=== PATIENT | male | born 1945 | race Caucasian/White ===

== ENCOUNTER 2016-10-29 08:15 | Inpatient (IN) | payer MEDICARE, OTHER ==
[2016-10-29] VITALS (19 sets, daily range): BP systolic 93–152; BP diastolic 58–94
[~2016-10-29] VITALS: Ht 180.3 cm; Wt 85.8 kg
[~2016-10-29 08:15] MED LIST: ALBU17AE23 IH; ALBU2.5V4 IN; ALBU8.5H2 IH; ALBU8.5H2 INH; ALPR0.5T7 PO; ALPR1TAB2 PO; ALPR1TAB7 PO; AMD200T; AMIO200T10 PO; AMIO200T2 PO; AMIO200T50 PO; AMOX-358 PO; APIX2.5T PO; APIX5TAB2 PO; BREO ELLIPTA IH; BUDE10.2 IH; CARTIA; CEFU500T5 PO; CIPR500T78 PO; CITA20TA4 PO; CITA20TA7 PO; CTLP20T PO; CYCL10TA45; DIGO250T15 PO; DILT120C PO; DILT300C26 PO; DILT30TA PO; FLUT1AER INH; FRSM40T PO; FURO40TA4 PO; HYDR-3583 PO; HYDR-36 PO; IBUP-15 PO; LACT10SO PO; LEVO500T2 PO; LEVO5TAB12 PO; LISI40TA PO; LSNP20T PO; Levofloxacin PO; NAPR250T34; PANT40TA PO; PANT40TA3 PO; PNT40TEC PO; POTA10TA10 PO; PRAV40TA PO; PRAV40TA2 PO; PRD10T PO; PRD20T PO; PRED10TA PO; PRV20T PO; RANI-351 PO; RT-ALBUINH INH; SUCR1TAB PO; THIA100T12 PO; TIOT18CA2 IH; TRAM50TA2 PO; WARF2.5T PO; WARF5TAB6 PO; ZLP5T PO; ZOLP10TA5 PO; ZOLP5TAB6 PO
[2016-10-29] MEDS ORDERED: RT-IPRATROPIUM (ATROVENT) 0.5MG/2.5ML AMP IH ONE ×2 (08:20→08:30)
[2016-10-29] MEDS ORDERED: RT-ALBUTEROL SULF 2.5 MG/3 ML PRE-MIX VIAL ONE (08:20)
--- OUTSIDE RECORDS SUMMARY | 2016-10-29 08:21 | XMS REPORT | Continuity of Care Document ---
Author Author [facility] Organization [facility] Address Unknown Phone Unavailable Care Team Providers Care Sap Pi Architect Name Role Phone QUINN CARPENTER DO PCP Insurance Providers Payer Name Policy Number Subscriber Name Relationship [employer] [id number] Matthew Christopher 20 Self / Same As Patient [employer] [id number] Matthew Christopher 18 Self / Same As Patient Advance Directives Directive Response Recorded Date/Time Advance Directives No 03/31/15 11:38am Health Care Power of Brewing Director No 03/31/15 11:38am Organ Donor No 03/31/15 8:03am Resuscitation Status Full Code 03/31/15 11:38am Problems Medical Problems Problem Onset Date Status Alcohol abuse Unknown Active COPD with acute exacerbation Unknown Active Alcohol abuse Unknown Active Hypersomnolent Unknown Active COPD with acute exacerbation Unknown Active Alcohol abuse Unknown Active Medications Medication Dose Route Sig Days/Qty Instructions Order Date Discontinued Date Status Furosemide 40 Mg PO DAILY 12/18/06 08/27/14 Discontinued Cyclobenzaprine HCl 12/18/06 02/20/11 Discontinued [Cartia] 12/18/06 02/20/11 Discontinued Naproxen 12/18/06 02/20/11 Discontinued Citalopram Hydrobromide 20 Mg PO DAILY 12/18/06 06/30/12 Discontinued Pravastatin Sodium 40 Mg PO DAILY 12/18/06 08/27/14 Discontinued Lisinopril 20 Mg PO DAILY 12/18/06 02/16/14 Discontinued Amiodarone HCl 12/18/06 02/20/11 Discontinued Albuterol 17 Gm IH NEEDED 02/20/11 06/30/12 Discontinued Amiodarone Hcl 200 Mg PO DAILY 02/21/11 08/27/14 Discontinued Cefuroxime Axetil (Ceftin) 500 Mf PO TWICE A DAY X 5 DAYS 02/21/1108/01 Discontinued Acetaminophen/Hydrocodone Bitart (Maxidone) 0.5 Tab PO Q6HRS.PRN 01/2906/30/12 Discontinued Citalopram Hydrobromide 20 Mg PO DAILY 06/30/12 03/31/15 Discontinued Zolpidem Tartrate 10 Mg PO BEDTIME PRN 06/30/12 02/16/14 Discontinued Albuterol 8.5 Gm IH EVERY 4HRS PRN 2 PUFFS 06/30/12 08/27/14 Discontinued Ibuprofen 1 - 2 Each PO Q 4 - 6 HRS PRN PRN 06/30/12 02/16/14 Discontinued Acetaminophen/Hydrocodone Bitart 1 - 2 Ea PO Q4HR PRN 30 Qty 07/10/12 02/16/14 Discontinued Lisinopril 40 Mg PO DAILY 02/16/14 08/27/14 Discontinued Zolpidem Tartrate 5 Mg PO BEDTIME PRN SLEEP 02/16/14 08/27/14 Discontinued Apixaban (Eliquis) 5 Mg PO TWICE A DAY 02/16/14 02/23/14 Discontinued [Breo Ellipta] 1 Puff IH DAILY 02/16/14 12/06/14 Discontinued Albuterol Sulfate 0.083 % IN EVERY 4HRS PRN SHORTNESS OF BREATH 02/1608/27/14 Discontinued Apixaban (Eliquis) 5 Mg PO TWICE A DAY 30 Days 02/23/14 08/27/14 Discontinued Prednisone PO DIRECTED TAKE 2 (20MG) TABS DAILY X 3 DAYS THEN, 05/0312/06/14 Discontinued Albuterol Sulfate 2 Puff INH EVERY 4HRS PRN SHORTNESS OF BREATH 08/27 Active Furosemide (Lasix) 40 Mg PO DAILY 08/27/14 Active Lisinopril (Zestril) 40 Mg PO DAILY 08/27/14 Active Pravastatin Sodium 40 Mg PO BEDTIME 08/27/14 Active Amiodarone Hcl 200 Mg PO DAILY 08/27/14 03/31/15 Discontinued Apixaban 5 Mg PO TWICE A DAY 08/27/14 12/06/14 Discontinued Levocetirizine Dihydrochloride 5 Mg PO DAILY 08/27/14 12/06/14 Discontinued Zolpidem Tartrate 5 Mg PO BEDTIME 08/27/14 12/07/14 Discontinued Ciprofloxacin HCl 500 Mg PO TWICE A DAY 10 Qty 09/02/14 12/06/14 Discontinued Prednisone 10 Mg PO DIRECTED 30 Qty 09/02/14 12/06/14 Discontinued Thiamine Hcl 100 Mg PO DAILY 30 Qty 09/02/14 12/06/14 Discontinued [Breo Ellipta] 1 Puff IH TWICE A DAY 12/06/14 Active Pantoprazole Sod 40 Mg PO DAILY 30 Days 12/06/14 12/07/14 Discontinued Warfarin Sodium 5 Mg PO DIRECTED 30 Days 12/06/14 12/07/14 Discontinued Warfarin Sodium 2.5 Mg PO DIRECTED 30 Days patient takes this medication on: Sat, Sat, and Saturday12/06/14 12/07/14 Discontinued Zolpidem Tartrate 10 Mg PO BEDTIME 12/07/14 Active Warfarin Sodium 5 Mg PO MO,WE,FR,GALEANA 12/07/14 12/14/14 Discontinued Warfarin Sodium 2.5 Mg PO TU,TH,SA 12/07/14 12/14/14 Discontinued Tramadol Hcl 50-100 Mg PO EVERY 6 HOURS PRN PAIN 12/07/14 03/31/15 Discontinued Ranitidine Hcl 150 Mg PO TWICE A DAY 12/07/14 12/14/14 Discontinued Pantoprazole Sod 40 Mg PO DAILY@0700 30 Qty 12/14/14 03/31/15 Discontinued Apixaban 5 Mg PO TWICE A DAY 60 Qty 12/14/14 02/22/15 Discontinued Prednisone 10 Mg PO DIRECTED 30 Qty 12/14/14 02/22/15 Discontinued Apixaban 5 Mg PO DAILY 02/22/15 03/31/15 Discontinued Diltiazem Hcl 120 Mg PO DAILY 30 Qty 02/25/15 03/31/15 Discontinued Prednisone 10 Mg PO DIRECTED 30 Qty 02/25/15 03/31/15 Discontinued [Levofloxacin] 750 Mg PO DAILY@1100 3 Qty 02/25/15 03/31/15 Discontinued Tramadol Hcl 50-100 Mg PO EVERY 6 HOURS PRN PAIN 03/31/15 Active Alprazolam 0.5 Mg PO THREE TIMES A DAY PRN ANXIETY 03/31/15 Active Citalopram Hydrobromide 20 Mg PO DAILY 03/31/15 Active Pantoprazole Sodium 40 Mg PO DAILY 03/31/15 Active Amiodarone Hcl 200 Mg PO DAILY 03/31/15 Active Apixaban 5 Mg PO TWICE A DAY 03/31/15 Active [Levofloxacin] 750 Mg PO DAILY@1100 3 Qty 04/06/15 Active Social History Social History Problem Response Recorded Date/Time Alcohol Use Denies Use 03/31/2015 11:01am Recreational Drug Use No 03/31/2015 11:01am Recent Foreign Travel No 03/31/2015 11:42am Recent Infectious Disease Exposure No 03/31/2015 11:01am Hospitalization with Isolation Denies 04/06/2015 2:53pm Sexually Transmitted Disease No 03/31/2015 11:01am HIV/AIDS No 03/31/2015 11:01am Smoking Status Former Smoker 03/31/2015 11:39am Do you dip or chew tobacco? No 03/31/2015 8:03am Query Response Start Date Stop Date Smoking Status Former Smoker 03/21/2010 Hospital Discharge Instructions Patient Instructions Physician Instructions New, Converted or Re-Newed RX: Transmitted to Pharmacy Plan of Care/Instructions/FU: 1. Follow up Dr. Carpenter in office 1 week. Call for appointment. 2. Home O2 - 2 lpm. 3. Follow up with [facility] - to be rescheduled. Activity as Tolerated: Yes Discharge Diet: Cardiac Diet Care Plan Patient Instructions:: 1. Follow up Dr. Carpenter in office 1 week. Call for appointment. 2. Home O2 - 2 lpm.3. Follow up with [facility] - to be rescheduled. Plan of Care Discharge Date 04/06/15 1:30pm Disposition 01 HOME, SELF-CARE Instructions/Education Provided Community-acquired Pneumonia (DC) Prescriptions See Medications Section Referrals QUINN CARPENTER DO (Unspecified) 09/09/14 Address: [address] [place] [id number] Reason(s) for Referral: 2:30 pm (Unspecified) Reason(s) for Referral: patient is to have PT/INR 2 days after discharge from [facility]. If this falls on a weekend have the patient come in a day early or a day late (ie: Saturday or Saturday). Patient is to keep previously scheduled follow-up with Dr. Cherry at his office on December 22 at 1:20 p.m. QUINN CARPENTER DO (Unspecified) Address: [address], [place] [id number] Reason(s) for Referral: call for appointment for one week QUINN CARPENTER DO (Unspecified) 02/25/15 Address: [address], [place] [address] Reason(s) for Referral: February AT 11:30 A.M. CHRISTOPHER PHELPS DO (Unspecified) Address: [address] [place], [place] [address] Reason(s) for Referral: CALL DR. PHELPS'S OFFICE ON March @ & TELL THEM THIS NURSE ALREADY TALKED TO HIM AND TO MAKE AN URGENT OFFICE APPOINTMENT WITHIN 2 WEEKS. (HE WILL BE ON VACATION UNTIL March). QUINN CARPENTER DO (Unspecified) 04/14/15 Address: [address] [place] [address] Reason(s) for Referral: March AT 1600 Functional Status Query Response Date Recorded Patient Orientation Normal For Age April 01, 2015 9:23am Comprehension Ability Understands Concepts April 06, 2015 8:15am Allergies, Adverse Reactions, Alerts Allergen Type Severity Reaction Status Last Updated NKANo Known Allergies Allergy Unknown Active 12/06/14 Immunizations Name Given Type Date of Pneumonia Vaccine 06/25/11 Historical Date of Influenza Vaccine 07/21/14 Historical Hepatitis A No Historical Hepatitis B No Historical Tetanus Booster (TDap) Unknown Historical Vital Signs Acute Vital Signs Vital Response Date/Time Temperature (Fahrenheit) 97.6 degrees F (97.6 - 99.5) Temperature (Calculated Celsius) 36.66473 degrees C (36.4 - 37.5) Temperature Source Temporal Pulse Rate (adult) 62 bpm (60 - 90) Respiratory Rate 20 bpm (12 - 24) O2 Sat by Pulse Oximetry 94 % (88 - 100) Blood Pressure 122/76 mm Hg Pain Pain Intensity 0 Height (Feet) 5 feet Height (Inches) 11.00 inches Height (Calculated Centimeters) 180.281516 cm Weight (Pounds) 192 pounds Weight (Ounces) 2.0 oz Weight (Calculated Grams) 64453.435 gm Weight (Calculated Kilograms) 87.979923 kilograms Calculated BMI 26.78 Results Laboratory Results Test Name Result Units Flags Reference Collection Date/Time Result Date/ Time Comments White Blood Count 10.6 10^3/uL 4.3-11.0 04/03/2015 4:39am 04/03/2015 5: 15am Red Blood Count 3.19 10^6/uL L 4.35-5.85 04/03/2015 4:39am 04/03/2015 5: 15am Hemoglobin 9.9 G/DL L 13.3-17.7 04/03/2015 4:39am 04/03/2015 5:15am Hematocrit 31 % L 40-54 04/03/2015 4:39am 04/03/2015 5:15am Mean Corpuscular Volume 97 FL 80-99 04/03/2015 4:39am 04/03/2015 5: 15am Mean Corpuscular Hemoglobin 31 PG 25-34 04/03/2015 4:39am 04/03/2015 5: 15am Mean Corpuscular Hemoglobin Concent 32 G/DL 32-36 04/03/2015 4:39am 5:15am Red Cell Distribution Width 14.7 % H 10.0-14.5 04/03/2015 4:39am 2014 5:15am Platelet Count 281 10^3/uL 130-400 04/03/2015 4:39am 04/03/2015 5:15am Mean Platelet Volume 9.2 FL 7.4-10.4 04/03/2015 4:39am 04/03/2015 5: 15am Neutrophils (%) (Auto) 80 % H 42-75 04/03/2015 4:39am 04/03/2015 5:15am Lymphocytes (%) (Auto) 10 % L 12-44 04/03/2015 4:39am 04/03/2015 5:15am Monocytes (%) (Auto) 9 % 0-12 04/03/2015 4:39am 04/03/2015 5:15am Eosinophils (%) (Auto) 0 % 0-10 04/03/2015 4:39am 04/03/2015 5:15am Basophils (%) (Auto) 0 % 0-10 04/03/2015 4:39am 04/03/2015 5:15am Neutrophils # (Auto) 8.5 X 10^3 H 1.8-7.8 04/03/2015 4:39am 04/03/2015 5: 15am Lymphocytes # (Auto) 1.1 X 10^3 1.0-4.0 04/03/2015 4:3904/03/2015 5: 15am Monocytes # (Auto) 1.0 X 10^3 0.0-1.0 04/03/2015 4:39am 04/03/2015 5: 15am Eosinophils # (Auto) 0.0 10^3/uL 0.0-0.3 04/03/2015 4:39am 04/03/2015 5 :15am Basophils # (Auto) 0.0 10^3/uL 0.0-0.1 04/03/2015 4:39am 04/03/2015 5: 15am Absolute Reticulocyte Count 42 10e9/L 24-90 04/02/2015 9:20am 2014 9:35am Percent Reticulocyte Count 1.19 % 0.50-2.40 04/02/2015 9:20am 2014 9:35am Sodium Level 140 MMOL/L 135-145 04/03/2015 4:39am 04/03/2015 5:29am Potassium Level 3.8 MMOL/L 3.6-5.0 04/03/2015 4:39am 04/03/2015 5:29am Chloride Level 97 MMOL/L L 98-107 04/03/2015 4:39am 04/03/2015 5:29am Carbon Dioxide Level 31 MMOL/L 21-32 04/03/2015 4:39am 04/03/2015 5: 29am Blood Urea Nitrogen 8 MG/DL 7-18 04/03/2015 4:39am 04/03/2015 5:29am Creatinine 0.78 MG/DL 0.60-1.30 04/03/2015 4:39am 04/03/2015 5:29am BUN/Creatinine Ratio 10 04/03/2015 4:39am 04/03/2015 5:29am Estimat Glomerular Filtration Rate > 60 04/03/2015 4:39am 2014 5:29am GFR INTERPRETIVE DATA UNITS FOR ESTIMATED GFR (eGFR): mL/min/1.73 M2 REFERENCE RANGE FOR ESTIMATED GFR (eGFR) eGFR NORMAL eGFR >60 MODERATELY DECREASED eGFR 30-59 SEVERLY DECREASED eGFR 15-29 KIDNEY FAILURE <15 (OR DIALYSIS) Glucose Level 108 MG/DL H 70-105 04/03/2015 4:39am 04/03/2015 5:29am Calcium Level 8.9 MG/DL 8.5-10.1 04/03/2015 4:39am 04/03/2015 5:29am Magnesium Level 2.1 MG/DL 1.8-2.4 03/31/2015 8:10am 03/31/2015 8:56am Total Bilirubin 0.4 MG/DL 0.1-1.0 04/03/2015 4:39am 04/03/2015 5:29am Alkaline Phosphatase 63 U/L 40-136 04/03/2015 4:39am 04/03/2015 5:29am Aspartate Amino Transf (AST/SGOT) 14 U/L 5-34 04/03/2015 4:39am 2014 5:29am Alanine Aminotransferase (ALT/SGPT) 6 U/L 0-55 04/03/2015 4:39am 2014 5:29am B-Type Natriuretic Peptide 140.9 PG/ML H <100.0 03/31/2015 8:10am 2014 9:00am Total Protein 5.6 G/DL L 6.4-8.2 04/03/2015 4:39am 04/03/2015 5:29am Albumin 2.8 G/DL L 3.2-4.5 04/03/2015 4:39am 04/03/2015 5:29am Stool Occult Blood Immunoassay POSITIVE * NEGATIVE 04/03/2015 3:40pm 5:47pm Ferritin 882 H NG/ML 25-300 04/02/2015 9:20am 04/05/2015 9:19am Iron Level 28 L UG/DL 40-180 04/02/2015 9:20am 04/05/2015 9:19am Transferrin % Saturation 14 L % 15-50 04/02/2015 9:20am 04/05/2015 9: 19am Total Iron Binding Capacity 200 L UG/DL 280-380 04/02/2015 9:20am 9:19am Vitamin B12 Level 358 PG/ML 200-1000 04/02/2015 9:20am 04/05/2015 9: 19am Procedures No known history of procedures. Encounters Encounter Location Date/Time Discharged Inpatient [facility] 03/31/15 9:48am
[2016-10-29] MEDS ORDERED: RT-ALBUTEROL SULF 2.5 MG/3 ML PRE-MIX VIAL INH STA (08:25)
[2016-10-29 08:32] LABS: ABG BASE EXCESS 3.8 MMOL/L (-2.5-2.5); ABG HCO3 36 MMOL/L (23-27); ABG OXYGEN SATURATION 100 % (94-100); ABG PO2 229 MMHG (79-93); ABG TCO2 39.9 MMOL/L (21.0-31.0)
[2016-10-29 08:33] LABS: ABG PH 7.13 (7.37-7.43)
[2016-10-29 08:34] LABS: ABG PCO2 110 MMHG (35-45); ALLENS TEST POSITIVE; PATIENT TEMP 97.2
--- NOTE | 2016-10-29 08:37 | ED Respiratory ---
General Chief Complaint: Respiratory Problems Stated Complaint: RESPIRATORY DISTRESS Nursing Triage Note: PT TO [facility] WITH CC OF SOB, PT WAS SEEN BY EMS LAST NIGHT, GIVEN A BREATHING TX BUT REFUSED TRANSPORT. TWO BREATHING TX'S WHILE IN ROUTE TODAY, PT O2 SAT OF 86% ON EMS ARRIVAL AT THE HOME. Source: patient Exam Limitations: no limitations History of Present Illness Time seen by provider: 08:15 Initial Comments Here with report of respiratory distress and significant shortness of air. EMS was called this morning the patient had initial O2 sat 86 percent on 5 L home. He does have a long tubing but typically does much better than that. Apparently they were called to his house last night for similar and he was better after breathing treatment and then refused transport. Denies fever or chills. Denies nausea or vomiting. Overall complains of weakness and significant respiratory distress. Patient is poor historian which is partially due to the underlying significance of his medical condition currently. Timing/Duration: yesterday, getting worse Severity: moderate Prior Episodes/Possible Cause: occasional episodes Modifying Factors: Improves With Albuterol Nebulizer, Worse With Coughing, Improves With Oxygen Associated Symptoms: No chest pain/soreness, coughNo fever/chills, nasal congestion shortness of breath wheezing Allergies and Home Medications Allergies Coded Allergies: NKANo Known Allergies (Verified Allergy, Unknown, 12/12/15) Home Medications Albuterol Sulfate 8.5 Gm Hfa.aer.ad 2 PUFF INH Q4H PRN PRN SHORTNESS OF BREATH ( Reported) Alprazolam 1 Mg Tablet 1 MG PO TID PRN PRN ANXIETY (Reported) Alprazolam 1 Mg Tablet #12 1 MG PO TID PRN PRN ANXIETY Prescribed by: LISA HUDSON on 05/24/16 2348 Apixaban 5 Mg Tablet 5 MG PO BID (Reported) Budesonide/Formoterol Fumarate 10.2 Gm Hfa.aer.ad 2 PUFF IH DAILY (Reported) Citalopram Hydrobromide 20 Mg Tablet 20 MG PO DAILY (Reported) Digoxin 250 Mcg Tablet #30 0.25 MG PO DAILY Prescribed by: ZACK TORRES on 12/15/15 0839 Diltiazem HCl 300 Mg Cap.er.24h 300 MG PO DAILY (Reported) Furosemide 40 Mg Tablet 40 MG PO DAILY (Reported) Lactulose 10 Gm/15 Ml Solution 10 GM PO BID PRN PRN CONSTIPATION (Reported) Pantoprazole Sodium 40 Mg Tablet.dr 40 MG PO BID (Reported) Potassium Chloride 10 Meq Tablet.er 10 MEQ PO DAILY (Reported) Pravastatin Sodium 40 Mg Tablet 40 MG PO DAILY (Reported) Tiotropium [place] Cbc Base 1 Inh Aerp 2 PUFF IH BID (Reported) Tramadol HCl 50 Mg Tablet 50 MG PO Q6H PRN PRN PAIN (Reported) Constitutional: see HPINo chills, No fever EENTM: nose congestionNo throat pain Respiratory: cough short of breath wheezing Cardiovascular: no symptoms reported Gastrointestinal: no symptoms reported Genitourinary: no symptoms reported Musculoskeletal: no symptoms reported Psychiatric/Neurological: See HPI Weakness Hematologic/Lymphatic: No Symptoms Reported All Other Systems Reviewed Negative Unless Noted: Yes Past Eebdvil-Twxmfb-Ihyhzo Hx Patient Social History Alcohol Use: Occasionally Uses Recreational Drug Use: No Smoking Status: Former Smoker Type Used: Cigarettes Former Smoker/When Quit: Nov 11, 2012 Recent Foreign Travel: No Contact w/Someone Who Travel: No Recent Infectious Disease Expo: No Recent Hopitalizations: No Immunizations Up To Date Tetanus Booster (TDap): Unknown PED Vaccines UTD: No Date of Pneumonia Vaccine: Jun 25, 2011 Date of Influenza Vaccine: Aug 05, 2015 Seasonal Allergies Seasonal Allergies: Yes Surgeries HX Surgeries: Yes (HEART CATH, left shoulder surgery) Surgeries: Cardiac, Orthopedic, Pacemaker Respiratory Hx Respiratory Disorders: Yes Respiratory Disorders: Asthma, Pneumonia, Sleep Apnea, COPD Cardiovascular Hx Cardiac Disorders: Yes (systolic dysfunction) Cardiac Disorders: Atrial Fibrillation, Chronic Edema/Swelling, High Cholesterol, Hypertension Neurological Hx Neurological Disorders: No Reproductive System Hx Reproductive Disorders: No Sexually Transmitted Disease: No HIV/AIDS: No Genitourinary Hx Genitourinary Disorders: No Gastrointestinal Hx Gastrointestinal Disorders: Yes Gastrointestinal Disorders: Gastroesophageal Reflux, Chronic Constipation Musculoskeletal Hx Musculoskeletal Disorders: Yes Musculoskeletal Disorders: Arthritis Endocrine Hx Endocrine Disorders: No HEENT HX ENT Disorders: Yes HEENT Disorders: Cataract Loss of Vision: Denies Hearing Impairment: Denies Cancer Hx Cancer: Yes Cancer: Skin, Melanoma Psychosocial Hx Psychiatric Problems: Yes Behavioral Health Disorders: Anxiety, Depression Integumentary HX Skin/Integumentary Disorder: No Blood Transfusions Hx Blood Disorders: No Adverse Reaction to a Blood Tr: No Reviewed Nursing Assessment Reviewed/Agree w Nursing PMH: Yes Family Medical History Significant Family History: Heart Disease Family Medial History: Alzheimer's disease 19 FATHER 19 MOTHER (70's) Diabetes mellitus 19 FATHER Hypertension 19 FATHER Myocardial infarction 19 FATHER (60's) Physical Exam Vital Signs Vital Sign - Last 12Hours 10/29/16 10/29/16 08:22 08:43 Temp 97.2 Pulse 60 Resp 28 B/P 148/83 Pulse Ox 100 O2 Delivery Non Rebreather O2 Flow Rate 7 Capillary Refill : Less Than 3 Seconds General Appearance: WD/WN moderate distress HEENT: PERRL/EOMI pharynx normal Neck: full range of motion supple Respiratory: respiratory distress (moderate) decreased breath sounds accessory muscle use wheezing expiration inspiration Cardiovascular: regular rate, rhythm no murmur Gastrointestinal: non tender soft Extremities: non-tender normal inspection Neurologic/Psychiatric: alert oriented x 3 Skin: normal color warm/dry Progress/Results/Core Measures Results/Orders Lab Results Laboratory Tests Test 10/29/16 08:20 10/29/16 08:50 10/29/16 09:31 10/29/16 09:39 Range/Units Curtis Test POSITIVE POSITIVE Arterial Blood Base Excess 3.8 H 3.9 H -2.5-2.5 MMOL/L Arterial Blood HCO3 36 H 34 H 23-27 MMOL/L Arterial Blood Oxygen Saturation 100 93 L 94-100 % Arterial Blood Partial Pressure CO2 110 *H 81 *H 35-45 MMHG Arterial Blood Partial Pressure O2 229 H 66 L 79-93 MMHG Arterial Blood Total CO2 39.9 H 36.5 H 21.0-31.0 MMOL/L Arterial Blood pH 7.13 *L 7.23 *L 7.37-7.43 Blood Gas Inspired Oxygen 99% 32 F102 Blood Gas Patient Temperature 97.2 97.5 Blood Gas Puncture Site RIGHT BRACHIAL RIGHT RADIAL Blood Gas Ventilator Setting NO NO Alanine Aminotransferase (ALT/SGPT) 33 0-55 U/L Albumin 5.0 H 3.2-4.5 G/DL Alkaline Phosphatase 106 40-136 U/L Anion Gap 14 5-14 MMOL/L Aspartate Amino Transf (AST/SGOT) 42 H 5-34 U/L BUN/Creatinine Ratio 17 Band Neutrophils 2 % Basophils # (Auto) 0.0 0.0-0.1 10^3/uL Basophils % (Manual) 0 % Basophils (%) (Auto) 0 0-10 % Blood Urea Nitrogen 25 H 7-18 MG/DL C-Reactive Protein High Sensitivity 3.87 H 0.00-0.50 MG/DL Calcium Level 9.7 8.5-10.1 MG/DL Carbon Dioxide Level 27 21-32 MMOL/L Chloride Level 82 L 98-107 MMOL/L Creatinine 1.50 H 0.60-1.30 MG/DL Eosinophils # (Auto) 0.0 0.0-0.3 10^3/uL Eosinophils % (Manual) 0 % Eosinophils (%) (Auto) 0 0-10 % Estimat Glomerular Filtration Rate 46 Glucose Level 150 H 70-105 MG/DL Hematocrit 40 40-54 % Hemoglobin 13.4 13.3-17.7 G/DL Lymphocytes # (Auto) 0.3 L 1.0-4.0 X 10^3 Lymphocytes % (Manual) 1 % Lymphocytes (%) (Auto) 2 L 12-44 % Macrocytosis SLIGHT Magnesium Level 2.6 H 1.8-2.4 MG/DL Mean Corpuscular Hemoglobin 34 25-34 PG Mean Corpuscular Hemoglobin Concent 33 32-36 G/DL Mean Corpuscular Volume 100 H 80-99 FL Mean Platelet Volume 9.1 7.4-10.4 FL Monocytes # (Auto) 1.0 0.0-1.0 X 10^3 Monocytes % (Manual) 4 % Monocytes (%) (Auto) 7 0-12 % Neutrophils # (Auto) 13.1 H 1.8-7.8 X 10^3 Neutrophils % (Manual) 93 % Neutrophils (%) (Auto) 91 H 42-75 % Platelet Count 155 130-400 10^3/uL Potassium Level 6.3 H 3.6-5.0 MMOL/L Red Blood Count 4.00 L 4.35-5.85 10^6/uL Red Cell Distribution Width 13.3 10.0-14.5 % Sodium Level 123 *L 135-145 MMOL/L Total Bilirubin 0.6 0.1-1.0 MG/DL Total Protein 7.8 6.4-8.2 G/DL White Blood Count 14.4 H 4.3-11.0 10^3/uL Micro Results Microbiology 10/29/16 Influenza Types A,B Antigen (PATRICIA) - Final, Complete My Orders Orders-LISA HUDSON MD Arterial Blood Gas (10/29/16 08:22) Cbc With Automated Diff (10/29/16 08:22) Comprehensive Metabolic Panel (10/29/16 08:22) Hs C Reactive Protein (10/29/16 08:22) Lactic Acid Analyzer (10/29/16 08:22) Magnesium (10/29/16 08:22) Blood Culture (10/29/16 08:22) Influenza A And B Antigens (10/29/16 08:22) Chest 1 View, Ap/Pa Only (10/29/16 08:22) Rt Request For Service (10/29/16 08:22) Ekg Tracing (10/29/16 08:22) O2 (10/29/16 08:22) Monitor-Rhythm Ecg Trace Only (10/29/16 08:22) Albuterol Pre-Mix Nebs (Rt) (Proventil P (10/29/16 08:25) Ipratropium 0.02% Neb Solution (Atrovent (10/29/16 08:30) Svn Sm Volume Nebulizer Rt-Rfs (10/29/16 08:25) Svn Sm Volume Nebulizer Rt-Rfs (10/29/16 08:25) Ipratropium 0.02% Neb Solution (Atrovent (10/29/16 08:20) Albuterol Pre-Mix Nebs (Rt) (Proventil P (10/29/16 08:20) Manual Differential (10/29/16 08:50) Arterial Blood Gas (10/29/16 09:42) Medications Given in ED Current Medications Medications Dose Ordered Sig/Jimmy Route Start Time Stop Time Status Last Admin Dose Admin Ipratropium [place] Cbc Base 0.5 mg ONCE ONCE IH 10/29/16 08:30 10/29/16 08:31 DC 10/29/16 08:37 0.5 MG Vital Signs/I&O Vital Sign - Last 12Hours 10/29/16 10/29/16 08:22 08:43 Temp 97.2 Pulse 60 99 Resp 28 B/P 148/83 Pulse Ox 100 97 O2 Delivery Non Rebreather O2 Flow Rate 7 32 Blood Pressure Mean: 104 Progress Note : Progress Note Seen and evaluated on arrival by EMS. IV established by EMS. EMS did give 2 DuoNeb treatments and 125 mg Solu-Medrol IV. Labs, EKG, chest x-ray and ABG ordered. BiPAP initiated shortly after arrival due to persistent in significant respiratory distress/failure. ABG confirms respiratory failure with CO2 of 110. Blood cultures and lactic acid have been ordered and drawn. Monitor patient. ECG Initial ECG Impression Date: Oct 29, 2016 Initial ECG Impression Time: 08:29 Initial ECG Rate: 74 Comment Ventricular paced rhythm. Intraventricular conduction delay with right bundle branch block appearance. Left ventricular hypertrophy noted. These are also noted on previous evaluation. Those of ST elevation [place]. Otherwise similar to previous. Interpreted by me. Diagnostic Imaging Diagonstic Imaging: Xray Plain Films/CT/US/NM/MRI: chest Comments VIA [facility] [place], [place] NAME: HERACLIO CHRISTOPHER [facility] REC#: [id number] PT STATUS: REG ER : 1945 PHYSICIAN: LISA HUDSON MD ADMIT DATE: 10/29/16/ER Draft Date of Exam:10/29/16 CHEST 1 VIEW, AP/PA ONLY CLINICAL INDICATION: Patient with complains of shortness of breath. EXAM: Portable chest x-ray upright view. COMPARISONS: Chest x-ray 2 views dated 01/11/2016. FINDINGS: Lungs/pleura: There is interval slight increase of linear opacities in right lung base which may represent atelectasis, but superimposed infiltrate cannot be completely excluded. There is no pneumothorax. There is no pleural effusion. Mediastinum: Unremarkable. Pulmonary vasculature: Unremarkable. Heart: Cardiac silhouette is upper limits of normal for portable projection. Again seen cardiac pacemaker overlying left chest with 2 leads projecting over the heart. Bones/extrathoracic soft tissue: There are hypertrophic spurs involving the thoracic spine. IMPRESSION: 1: There is interval mild right lung base atelectasis versus infiltrate. Chest x-ray 2 views may help better evaluate. 2: Upper limits of normal heart size for portable projection. Dictated on workstation # [id number] Dict: 10/29/16927 Trans: 10/29/16930 [id number] Interpreted by: ARSALAN PACKER MD Electronically signed by: Departure Impression Impression: Primary Impression: Acute respiratory failure with hypoxia and hypercarbia Disposition: ADMITTED INPATIENT Condition: Critical Decision to Admit Reason: Admit from ER (General) Decision to Admit/Date: Oct 29, 2016 Time/Decision to Admit Time: 09:50 Departure-Patient Inst. Referrals: QUINN LARIOS DO (PCP/Family) Primary Care Physician LISA HUDSON MD Oct 29, 2016 08:37
[2016-10-29 09:00] LABS: BASOPHILS % (AUTO) 0 % (0-10); EOSINOPHILS % (AUTO) 0 % (0-10); LYMPHOCYTES # (AUTO) 0.3 X 10^3 (1.0-4.0); LYMPHOCYTES % (AUTO) 2 % (12-44); MEAN CORPUSCULAR HEMOGLOBIN 34 PG (25-34); MEAN CORPUSCULAR HGB CONC 33 G/DL (32-36); MEAN CORPUSCULAR VOLUME 100 FL (80-99); MEAN PLATELET VOLUME 9.1 FL (7.4-10.4); MONOCYTES % (AUTO) 7 % (0-12); NEUTROPHILS # (AUTO) 13.1 X 10^3 (1.8-7.8); NEUTROPHILS % (AUTO) 91 % (42-75); PLATELET COUNT 155 10^3/uL (130-400); RED CELL DISTRIBUTION WIDTH 13.3 % (10.0-14.5); WHITE BLOOD COUNT 14.4 10^3/uL (4.3-11.0)
[2016-10-29 09:14] LABS: BAND NEUTROPHILS 2 %; BASOPHILS % (MANUAL) 0 %; EOSINOPHILS % (MANUAL) 0 %; LYMPHOCYTES % (MANUAL) 1 %; NEUTROPHILS % (MANUAL) 93 %
[2016-10-29 09:20] LABS: BILIRUBIN,TOTAL 0.6 MG/DL (0.1-1.0); CALCIUM 9.7 MG/DL (8.5-10.1); CREATININE SERUM 1.5 MG/DL (0.60-1.30); MAGNESIUM 2.6 MG/DL (1.8-2.4); POTASSIUM 6.3 MMOL/L (3.6-5.0); TOTAL PROTEIN 7.8 G/DL (6.4-8.2); hs C REACTIVE PROTEIN 3.87 MG/DL (0.00-0.50)
--- NOTE | 2016-10-29 09:32 | Diagnostic Imaging Report ---
CLINICAL INDICATION: Patient with complains of shortness of breath. EXAM: Portable chest x-ray upright view. COMPARISONS: Chest x-ray 2 views dated 01/11/2016. FINDINGS: Lungs/pleura: There is interval slight increase of linear opacities in right lung base which may represent atelectasis, but superimposed infiltrate cannot be completely excluded. There is no pneumothorax. There is no pleural effusion. Mediastinum: Unremarkable. Pulmonary vasculature: Unremarkable. Heart: Cardiac silhouette is upper limits of normal for portable projection. Again seen cardiac pacemaker overlying left chest with 2 leads projecting over the heart. Bones/extrathoracic soft tissue: There are hypertrophic spurs involving the thoracic spine. IMPRESSION: 1: There is interval mild right lung base atelectasis versus infiltrate. Chest x-ray 2 views may help better evaluate. 2: Upper limits of normal heart size for portable projection. Dictated by: Dictated on workstation # [id number]
[2016-10-29 09:45] LABS: ABG BASE EXCESS 3.9 MMOL/L (-2.5-2.5); ABG HCO3 34 MMOL/L (23-27); ABG OXYGEN SATURATION 93 % (94-100); ABG PO2 66 MMHG (79-93); ABG TCO2 36.5 MMOL/L (21.0-31.0)
[2016-10-29 09:47] LABS: ABG PCO2 81 MMHG (35-45); ABG PH 7.23 (7.37-7.43); ALLENS TEST POSITIVE
[2016-10-29 09:48] LABS: PATIENT TEMP 97.5
--- NOTE | 2016-10-29 10:44 | Consultation-Cardiology ---
HPI-Cardiology Cardiology Consultation Date of Consultation 10/29/16 Date of Admission Indication: shortness of breath HPI 71-year-old gentleman with history of coronary artery disease, paroxysmal atrial flutter. Admitted for increasing shortness of breath, was noted to be in hypercapnic respiratory failure. Started on BiPAP, upper my evaluation patient was laying down in bed, denied any chest pain, denied any pedal edema or claudication. Denied any syncope, overall he is a poor historian especially with the BiPAP machine. Was unable to provide full history, history was obtained by reviewing his record and visiting with Dr. Reed Home Medications & Allergies Allergies: Coded Allergies: NKANo Known Allergies (Verified Allergy, Unknown, 12/12/15) Home Medication List Reviewed: Yes [id number]-[id number]-Aqwkba Hx Patient Social History Alcohol Use: Occasionally Uses Recreational Drug Use: No Smoking Status: Former Smoker Former smoker/When Quit: Nov 11, 2012 Type Used: Cigarettes Recent Foreign Travel: No Recent Infectious Disease Expo: No Recent Hopitalizations: No Immunizations Up To Date Tetanus Booster (TDap): Unknown Date of Pneumonia Vaccine: Jun 25, 2011 Date of Influenza Vaccine: Aug 05, 2015 Past Medical History past medical history as discussed below Family Medical History Significant Family History: Heart Disease Family History: 19 FATHER Alzheimer's disease Diabetes mellitus Hypertension Myocardial infarction (60's) 19 MOTHER Alzheimer's disease (70's) Constitutional: see HPI chills diaphoresis malaise weakness EENTM: no symptoms reported see HPI Respiratory: see HPI cough dyspnea on exertion phlegm short of breath Cardiovascular: see HPINo chest pain, No edema, No Hx of Intervention, No palpitations, No syncope, No vascular heart diseas, No other Gastrointestinal: no symptoms reported see HPI Genitourinary: see HPI decreased output Musculoskeletal: no symptoms reported see HPI Skin: no symptoms reported see HPI Psychiatric/Neurological: No Symptoms Reported See HPI Reviewed Test Results Reviewed Test Results Lab Laboratory Tests Test 10/29/16 08:20 10/29/16 08:50 10/29/16 09:31 10/29/16 09:39 Range/Units Curtis Test POSITIVE POSITIVE Arterial Blood Base Excess 3.8 H 3.9 H -2.5-2.5 MMOL/L Arterial Blood HCO3 36 H 34 H 23-27 MMOL/L Arterial Blood Oxygen Saturation 100 93 L 94-100 % Arterial Blood Partial Pressure CO2 110 *H 81 *H 35-45 MMHG Arterial Blood Partial Pressure O2 229 H 66 L 79-93 MMHG Arterial Blood Total CO2 39.9 H 36.5 H 21.0-31.0 MMOL/L Arterial Blood pH 7.13 *L 7.23 *L 7.37-7.43 Blood Gas Inspired Oxygen 99% 32 F102 Blood Gas Patient Temperature 97.2 97.5 Blood Gas Puncture Site RIGHT BRACHIAL RIGHT RADIAL Blood Gas Ventilator Setting NO NO Alanine Aminotransferase (ALT/SGPT) 33 0-55 U/L Albumin 5.0 H 3.2-4.5 G/DL Alkaline Phosphatase 106 40-136 U/L Anion Gap 14 5-14 MMOL/L Aspartate Amino Transf (AST/SGOT) 42 H 5-34 U/L BUN/Creatinine Ratio 17 Band Neutrophils 2 % Basophils # (Auto) 0.0 0.0-0.1 10^3/uL Basophils % (Manual) 0 % Basophils (%) (Auto) 0 0-10 % Blood Urea Nitrogen 25 H 7-18 MG/DL C-Reactive Protein High Sensitivity 3.87 H 0.00-0.50 MG/DL Calcium Level 9.7 8.5-10.1 MG/DL Carbon Dioxide Level 27 21-32 MMOL/L Chloride Level 82 L 98-107 MMOL/L Creatinine 1.50 H 0.60-1.30 MG/DL Eosinophils # (Auto) 0.0 0.0-0.3 10^3/uL Eosinophils % (Manual) 0 % Eosinophils (%) (Auto) 0 0-10 % Estimat Glomerular Filtration Rate 46 Glucose Level 150 H 70-105 MG/DL Hematocrit 40 40-54 % Hemoglobin 13.4 13.3-17.7 G/DL Lymphocytes # (Auto) 0.3 L 1.0-4.0 X 10^3 Lymphocytes % (Manual) 1 % Lymphocytes (%) (Auto) 2 L 12-44 % Macrocytosis SLIGHT Magnesium Level 2.6 H 1.8-2.4 MG/DL Mean Corpuscular Hemoglobin 34 25-34 PG Mean Corpuscular Hemoglobin Concent 33 32-36 G/DL Mean Corpuscular Volume 100 H 80-99 FL Mean Platelet Volume 9.1 7.4-10.4 FL Monocytes # (Auto) 1.0 0.0-1.0 X 10^3 Monocytes % (Manual) 4 % Monocytes (%) (Auto) 7 0-12 % Neutrophils # (Auto) 13.1 H 1.8-7.8 X 10^3 Neutrophils % (Manual) 93 % Neutrophils (%) (Auto) 91 H 42-75 % Platelet Count 155 130-400 10^3/uL Potassium Level 6.3 H 3.6-5.0 MMOL/L Red Blood Count 4.00 L 4.35-5.85 10^6/uL Red Cell Distribution Width 13.3 10.0-14.5 % Sodium Level 123 *L 135-145 MMOL/L Total Bilirubin 0.6 0.1-1.0 MG/DL Total Protein 7.8 6.4-8.2 G/DL White Blood Count 14.4 H 4.3-11.0 10^3/uL Lactic Acid Level 1.3 0.5-2.0 MMOL/L Physical Exam Vital Signs Vital Sign - Last 12Hours 10/29/16 10/29/16 10/29/16 08:20 08:22 08:43 Temp 97.2 Pulse 60 Resp 28 B/P 148/83 Pulse Ox 96 O2 Delivery Nonrebreather O2 Flow Rate 7 Capillary Refill : Less Than 3 Seconds General Appearance: WD/WN Severe Distress Eyes: Bilateral Eye EOMI, Bilateral Eye Normal Inspection, Bilateral Eye PERRL HEENT: PERRL/EOMI TMs Normal Normal ENT Inspection Pharynx Normal Neck: Full Range of Motion Normal Inspection Non Tender Supple Respiratory: Chest Non Tender Crackles Decreased Breath Sounds Rales Respiratory Distress Cardiovascular: Regular Rate, Rhythm No Edema No JVD Normal Peripheral Pulses Systolic Murmur Gallop/S3 Gastrointestinal: Normal Bowel Sounds No Organomegaly No Pulsatile Mass Non Tender Soft Back: Normal Inspection No CVA Tenderness No Vertebral Tenderness Extremity: Normal Capillary Refill Normal Inspection Normal Range of Motion Non Tender No Calf Tenderness No Pedal Edema Neurologic/Psychiatric: Alert Oriented x3 No Motor/Sensory Deficits Normal Mood/Affect Skin: Normal Color Warm/Dry Lymphatic: No Adenopathy A/P-Cardiology Admission Diagnosis Acute respiratory failure Paroxysmal atrial flutter Sick sinus syndrome COPD Assessment/Plan Acute respiratory failure, on BiPAP, hypercapnic failure, questionable pneumonia , admitted by medical service, started on antibiotic with respiratory support. Severe COPD, followed by Dr. Zuniga, multiple hospitalization, using oxygen at home. Acute exacerbation at this time. Sick sinus syndrome, advanced AV block, paroxysmal atrial flutter, had dual- chamber pacemaker implanted in February 2011, has been followed by Dr. Cherry, no syncopal episodes were reported. History of nonischemic cardiomyopathy, no signs of heart failure, last echocardiogram was reported in July 2015 to have ejection fraction of 55 percent with mild aortic stenosis with valve area of 1.6 cm, had mild coronary artery disease per cardiac catheterization Hypertension, restart home medication monitor blood pressure. Hyperlipidemia, continue to monitor. History of chronic oral anticoagulation fo reducing the risk of stroke due to paroxysmal atrial flutter, maintained on amiodarone History of Lozano esophagus, peptic ulcer disease history of tobaccoism. Patient has stopped smoking. Continue to monitor MORGAN EDWARDS MD Oct 29, 2016 10:44
[2016-10-29] MEDS ORDERED: CHOL10007 PO (11:08)
[2016-10-29] MEDS ORDERED: DIGO250T PO (11:08)
[2016-10-29] MEDS ORDERED: LISI40TA PO (11:08)
[2016-10-29] MEDS ORDERED: SUCR1TAB PO (11:08)
[2016-10-29] MEDS ORDERED: BECL8.7A7 IH (11:08)
[2016-10-29] MEDS ORDERED: ROFL500T4 PO (11:08)
[2016-10-29] MEDS ORDERED: THIA100T7 PO (11:08)
[2016-10-29] MEDS ORDERED: OMEP40CA36 PO (11:08)
[2016-10-29] MEDS ORDERED: MONT10TA24 PO (11:08)
[2016-10-29] MEDS ORDERED: ZOLP10TA5 PO (11:12)
[2016-10-29] MEDS ORDERED: ARFO15VI3 IH (11:12)
[2016-10-29] MEDS ORDERED: CATHETER FLUSH 10 ML SYR IV PRN (11:45)
[2016-10-29] MEDS: NS IV 1000 ML 1,000 ML IV SCH ×2 (12:10→21:45)
[2016-10-29] MEDS: methylPREDNISolone 125 MG (Solu-MEDROL) VIAL IV SCH ×2 (12:11→19:46)
[2016-10-29] MEDS ORDERED: RT-ALBUTEROL/IPRATROPIUM 3 ML (DUONEB) VIAL INH PRN (12:45)
--- NOTE | 2016-10-29 13:01 | History & Physical-Hospitalist ---
RADHA NICKERSON MED STUDENT 10/29/16 1301: HPI History of Present Illness: HPI/Chief Complaint CC: shortness of breath HPI: Mr. Britt is a 71yoM with an extensive PMH including CAD, COPD, and PAF on anticoagulation with a pacemaker admitted for hypercarbic respiratory failure with hypoxia. He was having increased work of breathing all day yesterday. He wears oxygen at home all of the time and typically has it set to 2.5L, but yesterday his oxygen saturation was in the mid 80's, and they had to turn it all the way up to 5L. This improved his oxygen to about 90% at home. Overnight, his noted that he continue to have extreme difficulty in breathing, and by this morning he was breathing very shallow because he was so tired. He came to the ED, and was admitted to the ICU with BiPAP due to CO2 retention with a WBC of 14.[address] Carpenter. Source: family Exam Limitations: other (patient on bipap resting) Date Seen 10/29/16 Attending Physician Bruce Zuniga DO PCP Jarad Carpenter DO Referring Physician Date of Admission Oct 29, 2016 at 10:00 Home Medications & Allergies Home Medications Reviewed patient Home Medication Reconciliation Form Allergies Coded Allergies: NKANo Known Allergies (Verified Allergy, Unknown, 12/12/15) Past Qjdukiz-Swqfgx-Dksrmr Hx Patient Social History Marrital Status: Alcohol Use: Occasionally Uses Recreational Drug Use: No Smoking Status: Former Smoker Former smoker/When Quit: Nov 11, 2012 Type Used: Cigarettes Physical Abuse Screen: No Sexual Abuse: No Recent Foreign Travel: No Contact w/other who traveled: No Recent Hopitalizations: No Recent Infectious Disease Expo: No Immunizations Up To Date Tetanus Booster (TDap): Unknown Date of Pneumonia Vaccine: Jun 25, 2011 Date of Influenza Vaccine: Aug 05, 2015 Seasonal Allergies Seasonal Allergies: Yes Surgeries HX Surgeries: Yes (HEART CATH, left shoulder surgery) Surgeries: Cardiac, Orthopedic, Pacemaker Respiratory Hx Respiratory Disorders: Yes Respiratory Disorders: Chronic Bronchitis, COPD, Emphysema, Pneumonia Cardiovascular Hx Cardiovascular Disorders: Yes (systolic dysfunction) Cardiac Disorders: Atrial Fibrillation, Chronic Edema/Swelling, High Cholesterol, Hypertension Neurological Hx Neurological Disorders: No Reproductive System Hx Reproductive Disorders: No Sexually Transmitted Disease: No HIV/AIDS: No Genitourinary Hx Genitourinary Disorders: No Gastrointestinal Hx Gastrointestinal Disorders: Yes Gastrointestinal Disorders: Gastroesophageal Reflux, Chronic Constipation Musculoskeletal Hx Musculoskeletal Disorders: Yes Musculoskeletal Disorders: Arthritis Endocrine Hx Endocrine Disorders: No HEENT HX ENT Disorders: Yes HEENT Disorders: Cataract Loss of Vision: Denies Hearing Impairment: Denies Cancer Hx Cancer: Yes Cancer: Skin, Melanoma Psychosocial Hx Psychiatric Problems: Yes Behavioral Health Disorders: Anxiety, Depression Integumentary HX Skin/Integumentary Disorder: No Blood Transfusions Hx Blood Disorders: No Adverse Reaction to a Blood Tr: No Reviewed Nursing Assessment Reviewed/Agree w Nursing PMH: Yes Family Medical History Significant Family History: Heart Disease Family Hx: Alzheimer's disease 19 FATHER 19 MOTHER (70's) Diabetes mellitus 19 FATHER Hypertension 19 FATHER Myocardial infarction 19 FATHER (60's) Review of Systems ROS-Unable to Obtain: patient extremely fatigued, eyes closed, using BiPAP Cardiovascular: No chest pain Physical Exam Physical Exam Vital Signs Vital Sign - Last 12Hours 10/29/16 10/29/16 10/29/16 08:20 08:22 08:43 Temp 97.2 Pulse 60 Resp 28 B/P 148/83 Pulse Ox 96 O2 Delivery Nonrebreather O2 Flow Rate 7 Capillary Refill : Less Than 3 Seconds General Appearance: Moderate Distress Obese HEENT: PERRL/EOMI Neck: Normal Inspection Non Tender Supple Respiratory: Chest Non Tender Accessory Muscle Use Respiratory Distress Wheezing Cardiovascular: No Gallop No JVD No Murmur Normal Peripheral Pulses Other ( ventricularly paced at 60) Gastrointestinal: Normal Bowel Sounds No Organomegaly No Pulsatile Mass Non Tender Soft Rectal: Deferred Extremity: Normal Capillary Refill Normal Range of Motion Non Tender No Calf Tenderness Pedal Edema (1+ to mid shins) Other (chronic skin changes in lower extremity consistent with venous insufficiency) Neurologic/Psychiatric: Other (patient is resting, eyes close, moving all extremities) Skin: Cool Lymphatic: No Adenopathy Results Results/Procedures Lab Laboratory Tests 10/29/16 08:50 Radiology chest xray: 1: There is interval mild right lung base atelectasis versus infiltrate. Chest x-ray 2 views may help better evaluate. 2: Upper limits of normal heart size for portable projection. Assessment/Plan Admission Diagnosis hypercarbic respiratory failure with hypoxia, COPD exacerbation, hyperkalemia, hyponatremia Assessment and Plan 71yo with extensive PMH including CAD, COPD, PAF in hypercarbic respiratory failure with hypoxia. 1. hypercarbic respiratory failure with hypoxia -bipap on at 16/5 pressure, 50% O2, O2 sat at 99% -start broad spectrum antibiotics to cover for any other reason of respiratory failure, chest xray with atelectasis vs consolidation, WBC 14.4 -nebs, IV solu med -monitor serial ABG's for CO2 -pulm and cards consult 2. Leukocytosis -will continue to trend and monitor labs 3. hyperkalemia -albuterol should assist with this somewhat -consider lasix in setting of edema on legs as well 4. hyponatremia -126 in March of 2016 -123 today, likely chronic in nature 5. CAD 6. PAF -cards consult -continue eliquis 7. COPD -respiratory treatment as above ZACK TORRES DO 10/30/16 1100: HPI History of Present Illness: HPI/Chief Complaint noted details above deemed CORRECT and patient not communicating due to BiPAP in place in respiratory failure at the bedside agrees with plan Source: family Exam Limitations: clinical condition Home Medications & Allergies Allergies Coded Allergies: NKANo Known Allergies (Verified Allergy, Unknown, 12/12/15) Past Jfcdadk-Ualeal-Hvcpht Hx Patient Social History Marrital Status: Employed/Student: retired Respiratory Hx Respiratory Disorders: Yes Respiratory Disorders: COPD, Emphysema, Sleep Apnea Cardiovascular Hx Cardiovascular Disorders: Yes Cardiac Disorders: High Cholesterol, Hypertension Neurological Hx Neurological Disorders: No Genitourinary Hx Genitourinary Disorders: Yes Genitourinary Disorders: Renal Failure Gastrointestinal Hx Gastrointestinal Disorders: Yes Gastrointestinal Disorders: Esophagitis Musculoskeletal Hx Musculoskeletal Disorders: Yes Musculoskeletal Disorders: Arthritis, Chronic Back Pain Family Medical History Family Hx: Alzheimer's disease 19 FATHER 19 MOTHER (70's) Diabetes mellitus 19 FATHER Hypertension 19 FATHER Myocardial infarction 19 FATHER (60's) Review of Systems Constitutional: no symptoms reported Physical Exam Physical Exam Vital Signs Vital Sign - Last 12Hours 10/29/16 10/29/16 10/29/16 10/29/16 08:20 08:22 08:43 11:30 Temp 97.2 Pulse 60 Resp 28 B/P 148/83 Pulse Ox 96 O2 Delivery Nonrebreather O2 Flow Rate 7 FiO2 50 General Appearance: No Apparent Distress WD/WN Chronically ill Moderate Distress Obese Eyes: Bilateral Eye Normal Inspection, Bilateral Eye PERRL HEENT: PERRL/EOMI Normal ENT Inspection Pharynx Normal Neck: Full Range of Motion Normal Inspection Non Tender Supple Carotid Bruit Respiratory: Chest Non Tender No Accessory Muscle Use No Respiratory Distress Accessory Muscle Use Crackles Decreased Breath Sounds Respiratory Distress Wheezing Other (on biPAP) Cardiovascular: Regular Rate, Rhythm No Edema No Gallop No JVD No Murmur Normal Peripheral Pulses Gastrointestinal: Normal Bowel Sounds No Organomegaly No Pulsatile Mass Non Tender Soft Back: Normal Inspection No CVA Tenderness No Vertebral Tenderness Extremity: Normal Capillary Refill Normal Inspection Normal Range of Motion Non Tender No Calf Tenderness No Pedal Edema Neurologic/Psychiatric: No Motor/Sensory Deficits Normal Mood/Affect Disoriented x3 Other (patient is resting, eyes close, moving all extremities) Skin: Normal Color Warm/Dry Lymphatic: No Adenopathy Results Results/Procedures Lab Laboratory Tests 10/29/16 08:50 10/29/16 20:13 10/30/16 04:05 Assessment/Plan Admission Diagnosis Acute respiratory failure on chronic respiratory failure due to noncompliance with sleep apnea treatment in addition to severe COPD oxygen dependent CAD A fibrillation Pacemaker placement Hypertension Leukocytosis of unknown source likely stress-related since chest x-ray shows no infiltrate Assessment and Plan Monitor closely due to critical illness if this is an extended hospital stay meets criteria for [place] due to the severity of his lung disease RADHA NICKERSON MED STUDENT Oct 29, 2016 13:01 ZACK TORRES DO Oct 30, 2016 11:00
--- NOTE | 2016-10-29 13:06 | Pulmonary Consultation ---
History of Present Illness History of Present Illness Date of Consultation 10/29/16 13:00 Date of Admission Reason for Visit: shortness of breath History of Present Illness 71yo who presented t ED secondary to worsening SOB and weakness. Pt was found to have Sp02 of 86 on 5 liters NC. Pt refused EMS transfer yesterday after feeling improved with SVNs. Allergies and Home Medications Allergies Coded Allergies: NKANo Known Allergies (Verified Allergy, Unknown, 12/12/15) Home Medications Albuterol Sulfate 8.5 Gm Hfa.aer.ad 2 PUFF INH QID PRN PRN SHORTNESS OF BREATH ( Reported) Alprazolam 1 Mg Tablet 1 MG PO Q8H PRN PRN ANXIETY (Reported) Apixaban 5 Mg Tablet 5 MG PO BID (Reported) Arformoterol Tartrate 15 Mcg/2 Ml Vial.neb 15 MCG IH QID (Reported) Beclomethasone Dipropionate 8.7 Gm Aer.w.adap 2 PUFF IH BID (Reported) Cholecalciferol (Vitamin D3) 1,000 Unit Capsule 1,000 UNIT PO DAILY (Reported) Citalopram Hydrobromide 20 Mg Tablet 20 MG PO DAILY (Reported) Digoxin 250 Mcg Tablet 250 MCG PO DAILY (Reported) Diltiazem HCl 300 Mg Cap.er.24h 300 MG PO DAILY (Reported) Furosemide 40 Mg Tablet 40 MG PO DAILY (Reported) Lactulose 10 Gm/15 Ml Solution 15 ML PO BID PRN PRN CONSTIPATION (Reported) Lisinopril 40 Mg Tablet 40 MG PO DAILY (Reported) Montelukast Sodium 10 Mg Tablet 10 MG PO HS (Reported) Omeprazole 40 Mg Capsule.dr 40 MG PO BID (Reported) Pantoprazole Sodium 40 Mg Tablet.dr 40 MG PO BID (Reported) Potassium Chloride 10 Meq Tablet.er 10 MEQ PO DAILY (Reported) Pravastatin Sodium 40 Mg Tablet 40 MG PO DAILY (Reported) Roflumilast 500 Mcg Tablet 500 MCG PO DAILY@1700 (Reported) Sucralfate 1 Gm Tablet 1 GM PO QID PRN PRN STOMACH UPSET (Reported) Thiamine HCl 100 Mg Tablet 100 MG PO DAILY (Reported) Tiotropium [place] 1 Inh Aerp 2 PUFF IH DAILY (Reported) Tramadol HCl 50 Mg Tablet 50 MG PO Q6H PRN PRN PAIN (Reported) Zolpidem Tartrate 10 Mg Tablet 10 MG PO HS (Reported) Past Afpuclf-Laxyog-Mgfeot Hx Patient Social History Alcohol Use: Occasionally Uses Recreational Drug Use: No Smoking Status: Former Smoker Type Used: Cigarettes Former Smoker/When Quit: Nov 11, 2012 Recent Foreign Travel: No Contact w/Someone Who Travel: No Recent Infectious Disease Expo: No Recent Hopitalizations: No Physical Abuse Screen: No Sexual Abuse: No Immunizations Up To Date Tetanus Booster (TDap): Unknown PED Vaccines UTD: No Date of Pneumonia Vaccine: Jun 25, 2011 Date of Influenza Vaccine: Aug 05, 2015 Seasonal Allergies Seasonal Allergies: Yes Surgeries HX Surgeries: Yes (HEART CATH, left shoulder surgery) Surgeries: Cardiac, Orthopedic, Pacemaker Respiratory Hx Respiratory Disorders: Yes Respiratory Disorders: Asthma, Pneumonia, Sleep Apnea, COPD Cardiovascular Hx Cardiac Disorders: Yes (systolic dysfunction) Cardiac Disorders: Atrial Fibrillation, Chronic Edema/Swelling, High Cholesterol, Hypertension Neurological Hx Neurological Disorders: No Reproductive System Hx Reproductive Disorders: No Sexually Transmitted Disease: No HIV/AIDS: No Genitourinary Hx Genitourinary Disorders: No Gastrointestinal Hx Gastrointestinal Disorders: Yes Gastrointestinal Disorders: Gastroesophageal Reflux, Chronic Constipation Musculoskeletal Hx Musculoskeletal Disorders: Yes Musculoskeletal Disorders: Arthritis Endocrine Hx Endocrine Disorders: No HEENT HX ENT Disorders: Yes HEENT Disorders: Cataract Loss of Vision: Denies Hearing Impairment: Denies Cancer Hx Cancer: Yes Cancer: Skin, Melanoma Psychosocial Hx Psychiatric Problems: Yes Behavioral Health Disorders: Anxiety, Depression Integumentary HX Skin/Integumentary Disorder: No Blood Transfusions Hx Blood Disorders: No Adverse Reaction to a Blood Tr: No Reviewed Nursing Assessment Reviewed/Agree w Nursing PMH: Yes Family Medical History Significant Family History: Heart Disease Family Medial History: Alzheimer's disease 19 FATHER 19 MOTHER (70's) Diabetes mellitus 19 FATHER Hypertension 19 FATHER Myocardial infarction 19 FATHER (60's) Exam Exam Vital Signs Date Time Temp Pulse Resp B/P Pulse Ox O2 Delivery O2 Flow Rate FiO2 10/29/16 11:20 99.1 60 29 139/82 100 NIV/Bilevel 50.00 10/29/16 11:16 60 29 100 50.00 10/29/16 11:15 98.3 60 30 100 50 10/29/16 10:41 64 28 100 50 10/29/16 08:43 99 28 97 32 10/29/16 08:22 97.2 60 148/83 100 Non Rebreather 7 10/29/16 08:20 96 Nonrebreather 7 General Appearance: WD/WN Severe Distress HEENT: PERRL/EOMI TMs Normal Normal ENT Inspection Pharynx Normal Neck: Full Range of Motion Normal Inspection Non Tender Supple Respiratory: Chest Non Tender Crackles Decreased Breath Sounds Rales Respiratory Distress Cardiovascular: Regular Rate, Rhythm No Edema No JVD Normal Peripheral Pulses Systolic Murmur Gallop/S3 Capillary Refill: Less Than 3 Seconds Gastrointestinal: non tender soft Extremity: Normal Capillary Refill Normal Inspection Normal Range of Motion Non Tender No Calf Tenderness No Pedal Edema Neurologic/Psychiatric: Alert Oriented x3 No Motor/Sensory Deficits Normal Mood/Affect Skin: Normal Color Warm/Dry Lymphatic: No Adenopathy Results Lab Laboratory Tests 10/29/16 08:50 Assessment/Plan Assessment/Plan Severe COPDAE with acute on chronic respiratory failure -Pt will benefit from home vent to mask Pt has had multiple hospitalizations and ER visits due to respiratory failure. -Repeat ABG at 1500 -BiPAP PRN -SVNs Q4 -solumedrol -Noninvasive ventilation QHS and PRN SIRS r/o sepsis -start vanco and zozyn -hernandez culture Acute renal failure with hyperkalemia -WIll give Kayexalate, 10units reg insulin IV, NaHC03 1 amp, Atrial fibrillation -Followed by Cardiology CHF -elevated BNP followed by Cardiology and treatment with diuretics CHRISTOPHER PHELPS DO Oct 29, 2016 13:06 CHRISTOPHER PHELPS DO Oct 29, 2016 13:06
[2016-10-29] MEDS ORDERED: PHARMACY TO DOSE IV SCH (13:15)
[2016-10-29] MEDS: RT-ALBUTEROL/IPRATROPIUM 3 ML (DUONEB) VIAL INH SCH ×3 (13:35→21:59)
[2016-10-29] MEDS ORDERED: PIPERACILLIN SODIUM/TAZOBACTAM 4.5 GM in NS (BAXTER MINI) 100 ML IV NR (13:45)
[2016-10-29] MEDS ORDERED: DEXTROSE 50% 50 ML (IMS) SYR IV NR (13:45)
[2016-10-29] MEDS ORDERED: SODIUM BICARB 8.4% 50 MEQ/50 ML (ABBOTT) SYR IV NR (13:45)
[2016-10-29] MEDS ORDERED: SOD POLYSTERENE 15 GM/60 ML (KAYEXALATE) UNIT DOSE PO NR (13:45)
[2016-10-29] MEDS ORDERED: inSUlin (REGULAR) HUMAN 1 UNIT/0.01 ML (CHARGE PER UNIT) IV NR (13:45)
[2016-10-29] MEDS ORDERED: VANCOMYCIN 1500 MG/NS 500 ML IVPB IV NR ×2 (14:00)
[2016-10-29 15:15] LABS: ABG BASE EXCESS 5.2 MMOL/L (-2.5-2.5); ABG HCO3 34 MMOL/L (23-27); ABG OXYGEN SATURATION 46 % (94-100); ABG PCO2 76 MMHG (35-45); ABG PH 7.27 (7.37-7.43); ABG PO2 27 MMHG (79-93); ABG TCO2 35.9 MMOL/L (21.0-31.0)
[2016-10-29 15:16] LABS: ALLENS TEST POSITIVE; PATIENT TEMP 100.1
[2016-10-29 15:25] LABS: BILIRUBIN,URINE NEGATIVE (NEGATIVE); KETONES,URINE 1+ (NEGATIVE); LEUKOCYTE ESTERASE ,URINE NEGATIVE (NEGATIVE); NITRITE,URINE NEGATIVE (NEGATIVE); PH,URINE 6 (5-9); PROTEIN,URINE 1+ (NEGATIVE); UROBILINOGEN,URINE NORMAL (NORMAL)
[2016-10-29 15:32] LABS: SQUAMOUS EPITHELIAL CELL,UR 0-2 /HPF
[2016-10-29] MEDS ORDERED: FLU TRIvalent (5 YOA+) 2016-17 (AFLURIA) 0.5 ML IM ONE (16:00)
[2016-10-29 16:47] LABS: ABG BASE EXCESS 9.8 MMOL/L (-2.5-2.5); ABG HCO3 36 MMOL/L (23-27); ABG OXYGEN SATURATION 95 % (94-100); ABG PCO2 60 MMHG (35-45); ABG PO2 68 MMHG (79-93); ABG TCO2 37.9 MMOL/L (21.0-31.0)
[2016-10-29 16:48] LABS: ALLENS TEST POSITIVE; PATIENT TEMP 100.7
[2016-10-29] MEDS ORDERED: ZOLPIDEM 5 MG (AMBIEN) TAB PO PRN (21:45)
[2016-10-29] MEDS: ALPRAZolam 1 MG (XANAX) TAB PO PRN (21:56)
[2016-10-29] MEDS: PIPERACILLIN SODIUM/TAZOBACTAM 4.5 GM in NORMAL SALINE (BAXTER MINI) 100 ML IV SCH (21:56)
[2016-10-30] VITALS (19 sets, daily range): BP systolic 105–151; BP diastolic 58–95
[2016-10-30] MEDS: methylPREDNISolone 125 MG (Solu-MEDROL) VIAL IV SCH ×2 (01:28→05:58)
[2016-10-30] MEDS: NS IV 1000 ML 1,000 ML IV SCH (01:29)
[2016-10-30] MEDS: RT-ALBUTEROL/IPRATROPIUM 3 ML (DUONEB) VIAL INH SCH ×6 (02:32→22:30)
[2016-10-30 04:22] LABS: BASOPHILS % (AUTO) 0 % (0-10); EOSINOPHILS % (AUTO) 0 % (0-10); LYMPHOCYTES # (AUTO) 0.2 X 10^3 (1.0-4.0); LYMPHOCYTES % (AUTO) 2 % (12-44); MEAN CORPUSCULAR HEMOGLOBIN 33 PG (25-34); MEAN CORPUSCULAR HGB CONC 34 G/DL (32-36); MEAN CORPUSCULAR VOLUME 99 FL (80-99); MEAN PLATELET VOLUME 9.1 FL (7.4-10.4); MONOCYTES # (AUTO) 0.4 X 10^3 (0.0-1.0); MONOCYTES % (AUTO) 4 % (0-12); NEUTROPHILS # (AUTO) 8.7 X 10^3 (1.8-7.8); NEUTROPHILS % (AUTO) 94 % (42-75); PLATELET COUNT 137 10^3/uL (130-400); RED BLOOD COUNT 3.52 10^6/uL (4.35-5.85); RED CELL DISTRIBUTION WIDTH 13.8 % (10.0-14.5); WHITE BLOOD COUNT 9.2 10^3/uL (4.3-11.0)
[2016-10-30 04:41] LABS: ALANINE AMINOTRANSFERASE 30 U/L (0-55); ALBUMIN 3.7 G/DL (3.2-4.5); ANION GAP 12 MMOL/L (5-14); ASPARTATE AMINO TRANSFERASE 78 U/L (5-34); BILIRUBIN,TOTAL 0.5 MG/DL (0.1-1.0); BLOOD UREA NITROGEN 21 MG/DL (7-18); BUN/CREATININE RATIO 19; CALCIUM 9.3 MG/DL (8.5-10.1); CARBON DIOXIDE 32 MMOL/L (21-32); CHLORIDE 93 MMOL/L (98-107); CREATININE SERUM 1.08 MG/DL (0.60-1.30); GFR ESTIMATED > 60; GLUCOSE 128 MG/DL (70-105); POTASSIUM 3.7 MMOL/L (3.6-5.0); SODIUM 137 MMOL/L (135-145); TOTAL PROTEIN 6.1 G/DL (6.4-8.2)
[2016-10-30] MEDS: PIPERACILLIN SODIUM/TAZOBACTAM 4.5 GM in NORMAL SALINE (BAXTER MINI) 100 ML IV SCH ×3 (05:03→20:07)
[2016-10-30 05:26] LABS: ABG BASE EXCESS 8.8 MMOL/L (-2.5-2.5); ABG HCO3 34 MMOL/L (23-27); ABG OXYGEN SATURATION 98 % (94-100); ABG PCO2 52 MMHG (35-45); ABG PH 7.44 (7.37-7.43); ABG PO2 97 MMHG (79-93); ABG TCO2 35.9 MMOL/L (21.0-31.0)
[2016-10-30 05:30] LABS: ALLENS TEST YES-POS; PATIENT TEMP 98.7
[2016-10-30 05:43] LABS: MAGNESIUM 2.3 MG/DL (1.8-2.4); PHOSPHORUS 2.7 MG/DL (2.3-4.7)
[2016-10-30] MEDS ORDERED: MAGNESIUM 1 GM/100 ML IVPB 100 ML IV SCH (06:00)
[2016-10-30] MEDS ORDERED: KCL 20 MEQ TAB (K-DUR) PO SCH (06:00)
[2016-10-30] MEDS ORDERED: POTASSIUM CL 10MEQ/50ML IVPB 50 ML IV SCH (06:00)
--- NOTE | 2016-10-30 06:56 | Pulmonary Progress Note ---
Subjective Subjective/Events-last exam Pt is doing better no complications noted. Exam Exam Vital Signs Date Time Temp Pulse Resp B/P Pulse Ox O2 Delivery O2 Flow Rate FiO2 10/30/16 06:25 100 26 95 30.00 10/30/16 06:00 102 27 125/84 95 NIV/Bilevel 30.00 10/30/16 05:00 101 18 131/84 96 NIV/Bilevel 30.00 10/30/16 04:40 101 26 96 30.00 10/30/16 04:00 94 NIV/Bilevel 30 10/30/16 04:00 98.2 100 20 130/88 96 NIV/Bilevel 30.00 10/30/16 03:00 113 25 148/95 95 NIV/Bilevel 30.00 10/30/16 02:33 114 28 95 30.00 10/30/16 02:00 105 19 151/87 96 NIV/Bilevel 30.00 10/30/16 01:00 103 10/30/16 01:00 105 27 144/78 95 NIV/Bilevel 30.00 10/30/16 00:12 110 24 95 30.00 10/30/16 00:00 99.7 105 22 139/82 96 NIV/Bilevel 30.00 10/30/16 00:00 93 NIV/Bilevel 30 10/29/16 23:00 110 8 135/80 94 NIV/Bilevel 30.00 10/29/16 22:00 110 18 152/85 94 NIV/Bilevel 30.00 10/29/16 21:59 111 26 94 30.00 10/29/16 21:00 111 12 131/94 95 NIV/Bilevel 30.00 10/29/16 20:25 107 25 97 30.00 10/29/16 20:00 100.0 109 24 137/85 98 NIV/Bilevel 30.00 10/29/16 20:00 96 NIV/Bilevel 30 10/29/16 19:11 103 22 94 30.00 10/29/16 19:00 105 28 131/94 94 NIV/Bilevel 30.00 10/29/16 19:00 107 10/29/16 18:00 118 34 92 NIV/Bilevel 30.00 10/29/16 17:00 98 14 132/84 99 NIV/Bilevel 30.00 10/29/16 16:50 92 33 90 30.00 10/29/16 16:00 94 NIV/Bilevel 30 10/29/16 16:00 100.1 100 32 132/76 94 NIV/Bilevel 30.00 10/29/16 15:35 89 32 100 30.00 10/29/16 15:00 92 27 138/75 92 NIV/Bilevel 50.00 10/29/16 14:00 60 21 130/64 97 NIV/Bilevel 50.00 10/29/16 13:35 64 34 100 40.00 10/29/16 13:30 61 33 140/75 97 NIV/Bilevel 50.00 10/29/16 13:00 64 10/29/16 12:00 100 NIV/Bilevel 50 10/29/16 11:45 133/77 10/29/16 11:30 NIV Bilevel 50 10/29/16 11:20 99.1 60 29 139/82 100 NIV/Bilevel 50.00 10/29/16 11:16 60 29 100 50.00 10/29/16 11:15 98.3 60 30 100 50 10/29/16 10:41 64 28 100 50 10/29/16 08:43 99 28 97 32 10/29/16 08:22 97.2 60 148/83 100 Non Rebreather 7 10/29/16 08:20 96 Nonrebreather 7 I & O 10/30/16 07:00 Intake Total 805 ml Output Total 2575 ml Balance -1770 ml General Appearance: Mild Distress Obese HEENT: PERRL/EOMI Neck: Normal Inspection Non Tender Supple Respiratory: Chest Non Tender Accessory Muscle Use Respiratory Distress Wheezing Cardiovascular: No Gallop No JVD No Murmur Normal Peripheral Pulses Other ( ventricularly paced at 60) Capillary Refill: Less Than 3 Seconds Gastrointestinal: non tender soft Extremity: Normal Capillary Refill Normal Range of Motion Non Tender No Calf Tenderness Pedal Edema (1+ to mid shins) Other (chronic skin changes in lower extremity consistent with venous insufficiency) Neurologic/Psychiatric: Other (patient is resting, eyes close, moving all extremities) Skin: Cool Lymphatic: No Adenopathy Results Lab Laboratory Tests 10/29/16 08:50 10/29/16 20:13 10/30/16 04:05 Assessment/Plan Assessment/Plan Severe COPDAE with acute on chronic respiratory failure -Pt has home vent to mask however has not been using it -BiPAP PRN - Will trial off BiPAP -SVNs Q4 -solumedrol - decrease to 40 Q6 PNeumonia - vanco and zozyn -hernandez culture pending nonischemic cardiomyopathy -Lasix cardiology following hyperkalemia -- resolved Atrial fibrillation -Followed by Cardiology CHF Clinical Quality Measures DVT/VTE Risk/Contraindication: Risk Factor Score Per Nursin RFS Level Per Nursing on Admit: 4+=Very High CHRISTOPHER PHELPS DO Oct 30, 2016 06:56
--- NOTE | 2016-10-30 07:59 | Cardiology Progress Note ---
Subjective Subjective/Events-last exam Patient is laying down in bed, on BiPAP machine, still hyperventilating, denied any chest pain, no pedal edema Review of Systems General: No Chills, No Night Sweats, No Fatigue, No Malaise, No Appetite, No Other HEENT: No Head Aches, No Visual Changes, No Eye Pain, No Ear Pain, No Dysphasia , No Sinus Congestion, No Post Nasal Drip, No Sore Throat, No Other Pulmonary: Dyspnea CoughNo Pleuritic Chest Pain, No Other Cardiovascular: No: Chest Pain, Edema, Lt Headedness, Orthopnea, Other, Palpitations, Paroxysmal Noc. Dyspnea Objective-Cardiology Exam Last Set of Vital Signs Vital Signs 10/30/16 10/30/16 10/30/16 04:00 06:00 06:25 Temp 98.2 Pulse 100 Resp 26 B/P 125/84 Pulse Ox 95 O2 Delivery NIV/Bilevel O2 Flow Rate 30.00 FiO2 30 Capillary Refill : Less Than 3 Seconds I&O Bad tableGeneral: Alert, Oriented X3, Cooperative HEENT: Atraumatic, PERRLA Neck: Supple, No JVD, No Thyromegaly Lungs: Normal Air Movement, Other (Bilateral rhonchi) Heart: Normal S1, Normal S2, No Murmurs, Other (Borderline tachycardic) Abdomen: Normal Bowel Sounds, Soft, No Tenderness, No Hepatosplenomegaly, No Masses Extremities: No Clubbing, No Cyanosis, No Edema, Normal Pulses, No Tenderness/ Swelling Skin: No Rashes, No Breakdown, Other (Chronic venous stasis changes) Neuro: Normal Speech Psych/Mental Status: Mental Status NL, Mood NL Results Lab Laboratory Tests 10/29/16 08:50 10/29/16 20:13 10/30/16 04:05 A/P-Cardiology Admission Diagnosis Acute respiratory failure Paroxysmal atrial flutter Sick sinus syndrome COPD Assessment/Plan Acute respiratory failure, on BiPAP, was using BiPAP machine at home as needed, will try weaning him off today evaluate his tolerance and response Severe COPD, followed by Dr. Zuniga, multiple hospitalization, using oxygen at home. Acute exacerbation at this time. Sick sinus syndrome, advanced AV block, paroxysmal atrial flutter, had dual- chamber pacemaker implanted in February 2011, has been followed by Dr. Cherry, no syncopal episodes were reported. Restart Cardizem and lisinopril monitor blood pressure History of nonischemic cardiomyopathy, no signs of heart failure, last echocardiogram was reported in July 2015 to have ejection fraction of 55 percent with mild aortic stenosis with valve area of 1.6 cm, had mild coronary artery disease per cardiac catheterization, I will evaluate 2-D echocardiogram, noted elevated BNP but no signs of decompensated failure Hypertension, monitor blood pressure and continue on home medication Hyperlipidemia, restart pravastatin History of chronic oral anticoagulation fo reducing the risk of stroke due to paroxysmal atrial flutter, maintained on Eliquis History of Lozano esophagus, peptic ulcer disease, restart Protonix history of tobaccoism. Patient has stopped smoking. Continue to monitor Clinical Quality Measures DVT/VTE Risk/Contraindication: Risk Factor Score Per Nursin RFS Level Per Nursing on Admit: 4+=Very High MORGAN EDWARDS MD Oct 30, 2016 07:59
--- NOTE | 2016-10-30 08:12 | Diagnostic Imaging Report ---
INDICATION: Followup respiratory failure. Comparison study: Chest from yesterday. FINDINGS: Portable upright view of the chest demonstrates the heart size remaining at the upper limits of normal with a cardiac pacemaker in place. The vascularity is normal. No pleural effusions are present. Mild infiltrates or atelectasis in the medial right lung base have improved. IMPRESSION: 1. Normal and stable borderline cardiomegaly. 2. Improving mild atelectasis or infiltrates in the medial right lung base. Dictated by: Dictated on workstation # [id number]
--- NOTE | 2016-10-30 08:32 | Progress Note-Hospitalist ---
RADHA NICKERSON MED STUDENT 10/30/16 0832: Progress Note HPI/CC on Admission CC: shortness of breath S: Mr. Britt did well overnight. He has significantly less work of breathing. His color is much better, and he feels better. He was taken off bipap this morning and is on 4L by NC. O: vitals stable, O2 sat 92+% overnight labs improving with CO2 down to 52 from 110 yesterday. WBC down to 9.2 from 14.4 yesterday CXR with improvement of atelectasis RRR, lungs with end expiratory wheezing which has improved from yesterday, abdomen soft/nontender, no edema on extremities, A&Ox3, normal strength and sensation, sitting in bed with good color to skin off of bipap Progress Notes/Assess & Plan Date Seen 10/30/16 Admission Dx/Process hypercarbic respiratory failure with hypoxia, COPD exacerbation, hyperkalemia, hyponatremia Diagonsis/Assessment & Plan 71yo with extensive PMH including CAD, COPD, PAF in hypercarbic respiratory failure with hypoxia. 1. hypercarbic respiratory failure with hypoxia -stopped bipap, using 4L per NC -if patient is stable this afternoon will transfer to floor -continue nebs -obtain echo -pulm and cards consult 2. Leukocytosis -improved WBC to 9.2 today 3. hyperkalemia -improved potassium to 3.7 today from >6 yesterday 4. hyponatremia -improved Na+ to 137 today 5. CAD 6. PAF -cards consult -continue eliquis 7. COPD -respiratory treatment as above ZACK TORRES DO 10/30/16 1101: Progress Note Progress Notes/Assess & Plan Diagonsis/Assessment & Plan Agree with above notes by medical student since he is doing much better and obtaining echocardiogram currently at bedside and very pleased with results Patient denies any pain and feels overall much better and is thinking clearly Wheezing noted all francisco but less restricted expansion compared to yesterday and off noninvasive ventilator support Transfer to fourth floor if able Physical therapy High flow oxygen Nebulizers Monitor closely but prognosis long-term is very poor considering the severity of his comorbidities RADHA NICKERSON MED STUDENT Oct 30, 2016 08:32 ZACK TORRES DO Oct 30, 2016 11:01
[2016-10-30] MEDS: DIGOXIN 0.25 MG (LANOXIN) TAB PO SCH (08:59)
[2016-10-30] MEDS: DILTIAZEM 300 MG (CARDIZEM CD) CAP PO SCH (08:59)
[2016-10-30] MEDS: KCL 10 MEQ TAB (MICRO K) PO SCH (09:00)
[2016-10-30] MEDS: FUROSEMIDE 40 MG (LASIX) TAB PO SCH (09:00)
[2016-10-30] MEDS: lisINopril 20 MG (ZESTRIL) TAB PO SCH (09:00)
[2016-10-30] MEDS ORDERED: FUROSEMIDE 40 MG/4 ML INJ (LASIX) IVP SCH (09:00)
[2016-10-30] MEDS: APIXABAN 5 MG (ELIQUIS) TABLET PO SCH ×2 (09:00→20:07)
[2016-10-30] MEDS: PANTOPRAZOLE 40 MG (PROTONIX) TAB PO SCH ×2 (09:00→20:08)
[2016-10-30] MEDS: ALPRAZolam 1 MG (XANAX) TAB PO PRN ×2 (10:45→20:07)
[2016-10-30] MEDS: methylPREDNISolone 40 MG/ML (Solu-MEDROL) VIAL IV SCH ×3 (11:30→23:52)
--- NOTE | 2016-10-30 12:07 | Physical Therapy Evaluation ---
PT Evaluation-General Medical Diagnosis Admission Date Oct 29, 2016 at 10:00 Medical Diagnosis: Resp failure Onset Date: Oct 30, 2016 Therapy Diagnosis Therapy Diagnosis: weakness; abn gait Height/Weight Height (Feet): 5 Height (Inches): 11.00 Weight (Pounds): 186 Weight (Ounces): 2.0 Precautions Precautions/Isolations: Standard Precautions Referral Physician: Rafita Reason for Referral: Evaluation/Treatment Medical History Pertinent Medical History: Atrial Fib, Arthritis, COPD, GERD, HTN Additional Medical History pacemaker, o2 dependent, bronchitis, GERD, anxiety, depression Current History Admitted with respiratory failure. Reviewed History: Yes Social History Home: Single Level Current Living Status: Spouse Entry Into Home: Stairs With Railing Prior/Core FIM Prior Level of Function Functional [place] Measure 0=Not Assessed/NA 4=Minimal Assistance 1=Total Assistance 5=Supervision or Setup 2=Maximal Assistance 6=Modified [place] 3=Moderate Assistance 7=Complete [place] Pt was indep with mobility; still drives; able to ambulate in community; oxygen dep PT Evaluation-Current Subjective "Im not very good today"; reports "I have anxiety"; agrees to evaluation Pain Numeric Pain Scale: 0-No Pain Location: No Pain Reported Pt/Family Goals Pt's goals are to return home with his spouse. Objective Patient Orientation: Person, Place, Time, Situation Problem Solving: Fair Attachments: Oxygen ROM/Strength ROM Lower Extremities WFL Strenght Lower Extremities WFL Integumentary/Posture Integumentary intact; dry skin noted Bowel Incontinence: No Bladder Incontinence: No Posture normal; symmetrical Neuromuscular (Tone, Coordination, Reflexes) intact and functional Sensory Vision: Wears Glasses Hearing: Functional Hand Dominance: Right Sensation Right Lower Extremit: Intact Sensation Left Lower Extremity: Intact Transfers Functional [place] Measure 0=Not Assessed/NA 4=Minimal Assistance 1=Total Assistance 5=Supervision or Setup 2=Maximal Assistance 6=Modified [place] 3=Moderate Assistance 7=Complete [place] Transfers (B, C, W/C) (FIM): 5 Rollin Supine to/from Sit: 5 Sit to/from Stand: 5 supervision for safety purposes Gait Mode of Locomotion: Walk Anticipated Mode of Locomotion: Walk Gait (FIM): 2 Distance (FIM): 1=up to 49 ft Distance: 45 ft in room Gait Level of Assist: 5 (SBA for safety) Gait Assistive Device: None Comments/Gait Description slightly unsteady; provided a FWW if he wanted to use it. Balance Sitting Static: Normal Sitting Dynamic: Normal Standing Static: Good Standing Dynamic: Good Assessment/Needs Presents with SOA at rest and slightly anxious. He would benefit from skilled PT to work on functional act tolerance and energy conservation. He does have decreased safety likely due to anxiety at this time. Rehab Potential: Fair PT [place] Tour Guide Goals [place] Tour Guide Goals PT [place] Tour Guide Goals Time Frame: Nov 06, 2016 Transfers (B,C,W/C) (FIM): 7 Gait (FIM): 6 Gait distance (FIM): 3=150 ft Gait Assistive Device: FWW PT Plan Problem List Problem List: Activity Tolerance, Functional Strength, Safety, Gait, Transfer Treatment/Plan Treatment Plan: Continue Plan of Care Treatment Plan: Bed Mobility, Education, Functional Activity Ev, Functional Strength, Gait, Safety, Therapeutic Exercise, Transfers Treatment Duration: Nov 06, 2016 # of days/week 5-6 Minutes/Day (M-F): 5-6 Pt/Family Agrees w/Plan: Yes Safety Risks/Education Patient Education: Safety Issues Teaching Recipient: Patient Teaching Methods: Discussion Response to Teaching: Reinforcement Needed Discharge Recommendations Plan Progress functional act and mobility as pt able. Time/GCodes Time In: 1140 Time Out: 1200 Total Billed Treatment Time: 20 Total Billed Treatment visit EVMod 20 RAE CR PT Oct 30, 2016 12:07
[2016-10-30] MEDS ORDERED: VANCOMYCIN 1250 MG/NS 250 ML IVPB IV SCH ×2 (14:00)
[2016-10-30] MEDS: SIMvastatin 20 MG (ZOCOR) TAB PO SCH (20:07)
[2016-10-31] VITALS: BP 142/75
[2016-10-31] MEDS: RT-ALBUTEROL/IPRATROPIUM 3 ML (DUONEB) VIAL INH SCH ×6 (02:22→22:45)
[2016-10-31 04:00] VITALS: BP 142/83
[2016-10-31] MEDS: PIPERACILLIN SODIUM/TAZOBACTAM 4.5 GM in NORMAL SALINE (BAXTER MINI) 100 ML IV SCH ×3 (04:41→20:46)
[2016-10-31 04:47] LABS: BASOPHILS % (AUTO) 0 % (0-10); EOSINOPHILS % (AUTO) 0 % (0-10); LYMPHOCYTES # (AUTO) 0.3 X 10^3 (1.0-4.0); LYMPHOCYTES % (AUTO) 3 % (12-44); MEAN CORPUSCULAR HEMOGLOBIN 34 PG (25-34); MEAN CORPUSCULAR HGB CONC 34 G/DL (32-36); MEAN CORPUSCULAR VOLUME 100 FL (80-99); MEAN PLATELET VOLUME 8.9 FL (7.4-10.4); MONOCYTES # (AUTO) 0.5 X 10^3 (0.0-1.0); MONOCYTES % (AUTO) 6 % (0-12); NEUTROPHILS # (AUTO) 7.5 X 10^3 (1.8-7.8); NEUTROPHILS % (AUTO) 90 % (42-75); PLATELET COUNT 170 10^3/uL (130-400); RED BLOOD COUNT 3.41 10^6/uL (4.35-5.85); RED CELL DISTRIBUTION WIDTH 14.3 % (10.0-14.5); WHITE BLOOD COUNT 8.3 10^3/uL (4.3-11.0)
[2016-10-31 05:11] LABS: ALANINE AMINOTRANSFERASE 30 U/L (0-55); ALBUMIN 3.5 G/DL (3.2-4.5); ANION GAP 10 MMOL/L (5-14); ASPARTATE AMINO TRANSFERASE 60 U/L (5-34); BILIRUBIN,TOTAL 0.4 MG/DL (0.1-1.0); BLOOD UREA NITROGEN 25 MG/DL (7-18); BUN/CREATININE RATIO 26; CALCIUM 9.1 MG/DL (8.5-10.1); CARBON DIOXIDE 33 MMOL/L (21-32); CHLORIDE 95 MMOL/L (98-107); CREATININE SERUM 0.97 MG/DL (0.60-1.30); GFR ESTIMATED > 60; GLUCOSE 151 MG/DL (70-105); POTASSIUM 3.3 MMOL/L (3.6-5.0); SODIUM 138 MMOL/L (135-145); TOTAL PROTEIN 5.6 G/DL (6.4-8.2)
[2016-10-31] MEDS: methylPREDNISolone 40 MG/ML (Solu-MEDROL) VIAL IV SCH ×4 (05:15→23:05)
--- NOTE | 2016-10-31 07:09 | Pulmonary Progress Note ---
Subjective Subjective/Events-last exam no complications Exam Exam Vital Signs Date Time Temp Pulse Resp B/P Pulse Ox O2 Delivery O2 Flow Rate FiO2 10/31/16 04:00 97.5 78 20 142/83 94 NIV/CPAP 10/31/16 02:22 93 Nasal Cannula 4.00 10/31/16 01:00 87 10/31/16 00:00 98.9 91 20 142/75 95 High Flow NC 4.00 10/30/16 22:30 99 Nasal Cannula 4.00 10/30/16 20:10 High Flow NC 4.00 10/30/16 19:40 99.3 105 24 105/58 96 High Flow NC 4.00 10/30/16 19:00 89 10/30/16 18:47 97 Nasal Cannula 4.00 10/30/16 16:00 98 Nasal Cannula 4.00 10/30/16 15:35 98.9 101 24 144/66 95 High Flow NC 4.00 10/30/16 12:57 80 10/30/16 12:00 99.2 70 24 126/67 95 High Flow NC 4.00 10/30/16 12:00 96 High Flow NC 4.00 10/30/16 10:45 95 Nasal Cannula 4.00 10/30/16 10:00 110 23 149/90 98 High Flow NC 4.00 10/30/16 09:22 98 High Flow NC 4.00 10/30/16 09:00 96 High Flow NC 4.00 10/30/16 08:50 97.0 101 16 131/85 95 NIV/Bilevel 30.00 10/30/16 08:19 99 24 95 30.00 10/30/16 08:00 101 25 131/85 96 NIV/Bilevel 30.00 I & O 10/31/16 07:00 Intake Total 2590 ml Output Total 1975 ml Balance 615 ml General Appearance: No Apparent Distress WD/WN Chronically ill Moderate Distress Obese HEENT: PERRL/EOMI Normal ENT Inspection Pharynx Normal Neck: Full Range of Motion Normal Inspection Non Tender Supple Carotid Bruit Respiratory: Chest Non Tender No Accessory Muscle Use No Respiratory Distress Accessory Muscle Use Crackles Decreased Breath Sounds Respiratory Distress Wheezing Other (on biPAP) Cardiovascular: Regular Rate, Rhythm No Edema No Gallop No JVD No Murmur Normal Peripheral Pulses Capillary Refill: Less Than 3 Seconds Gastrointestinal: non tender soft Extremity: Normal Capillary Refill Normal Inspection Normal Range of Motion Non Tender No Calf Tenderness No Pedal Edema Neurologic/Psychiatric: No Motor/Sensory Deficits Normal Mood/Affect Disoriented x3 Other (patient is resting, eyes close, moving all extremities) Skin: Normal Color Warm/Dry Lymphatic: No Adenopathy Results Lab Laboratory Tests 10/29/16 08:50 10/29/16 20:13 10/30/16 04:05 10/31/16 04:25 Assessment/Plan Assessment/Plan Severe COPDAE with acute on chronic respiratory failure -Pt is currently using home vent -BiPAP PRN - Will trial off BiPAP -SVNs Q4 -solumedrol - 40 Q6 PNeumonia - vanco and zozyn -hernandez culture pending nonischemic cardiomyopathy -Lasix cardiology following Atrial fibrillation -Followed by Cardiology CHF Clinical Quality Measures DVT/VTE Risk/Contraindication: Risk Factor Score Per Nursin RFS Level Per Nursing on Admit: 4+=Very High CHRISTOPHER PHELPS DO Oct 31, 2016 07:09
[2016-10-31 08:00] VITALS: BP 131/62
--- NOTE | 2016-10-31 08:33 | Physician Query-General Query ---
Physician Query-General Query to Physician: For clarification: 1. Was SIRS ruled in or out? note says SIRS r/o sepsis so yes SIRS is present on admission 2. Was Sepsis ruled in or out? yes secondary to pneumonia 3. If sepsis, was acute on chronic resp failure related to it or other etiology ? SepSIS is secondary to pneumonia of coarse it will make respiratory status worse 4. If sepsis, was acute kidney failure related to it or other etiology? probably related to acute event 5. Was pneumonia present on admission or did it develop after? yes 6. Was the patient's pneumonia specified to a specific organism? Please specify if possible. Pseudomonas PHYSICIAN RESPONSE: Based on the clinical findings in the record, please respond to the query above on this document as an addendum. Possible, probable, or questionable diagnosis can be coded for INPATIENTS ONLY. Physician Response: Physician Response 1. Was SIRS ruled in or out? note says SIRS r/o sepsis so yes SIRS is present on admission 2. Was Sepsis ruled in or out? yes secondary to pneumonia 3. If sepsis, was acute on chronic resp failure related to it or other etiology ? SepSIS is secondary to pneumonia of coarse it will make respiratory status worse 4. If sepsis, was acute kidney failure related to it or other etiology? probably related to acute event 5. Was pneumonia present on admission or did it develop after? yes 6. Was the patient's pneumonia specified to a specific organism? Please specify if possible. Pseudomonas If you have questions please contact: Loan Auditor:Jeanine Carrington [facility] Ext:[phone] Thank you for your time and cooperation. Clinical Security System Administrator/Loan Auditor This is a permanent part of the medical record JEANINE CARRINGTON Oct 31, 2016 08:33 CHRISTOPHER PHELPS DO Nov 13, 2016 09:46
[2016-10-31] MEDS: DILTIAZEM 300 MG (CARDIZEM CD) CAP PO SCH (08:44)
[2016-10-31] MEDS: PANTOPRAZOLE 40 MG (PROTONIX) TAB PO SCH ×2 (08:44→20:45)
[2016-10-31] MEDS: FUROSEMIDE 40 MG (LASIX) TAB PO SCH (08:45)
[2016-10-31] MEDS: APIXABAN 5 MG (ELIQUIS) TABLET PO SCH ×2 (08:45→20:45)
[2016-10-31] MEDS: KCL 10 MEQ TAB (MICRO K) PO SCH (08:45)
[2016-10-31] MEDS: lisINopril 20 MG (ZESTRIL) TAB PO SCH (08:45)
[2016-10-31] MEDS: DIGOXIN 0.25 MG (LANOXIN) TAB PO SCH (08:45)
--- NOTE | 2016-10-31 08:49 | ECHOCARDIOGRAPHY REPORT ---
PROCEDURE PHYSICIAN: MORGAN EDWARDS DATE OF PROCEDURE: 10/30/2016 TWO DIMENSIONAL ECHOCARDIOGRAM REPORT PRIMARY PHYSICIAN: OTHER PHYSICIAN: REFERRING PHYSICIAN: Dr. Carpenter ORDERING PHYSICIAN: INDICATION FOR THE PROCEDURE: Acute respiratory failure. MEASUREMENTS DERIVED VALUES LV DIAMETER (LAX) NORMALS NORMALS Diastolic 4.4 (3.6-5.2) Eject. Fract. 60% (60%+/-6%) Systolic (2.3-3.9) Diastolic Vol. % Shortening (0.22-0.42) Systolic Vol. Aortic Root IVS THICKNESS Diastolic 1.2 (0.6-1.1) LVPW THICKNESS Diastolic 1.2 (0.6-1.1) LA DIAMETER Systolic 4 (2.1-3.7) FINDINGS: 1. Technical quality is good. 2. The left ventricle is normal in size with mild to moderate left ventricular hypertrophy noted diffusely. Systolic function appeared to be normal. Estimated ejection fraction 60%. Diastolic dysfunction is suggested by Doppler. 3. The left atrium is mildly dilated. No clot or thrombus were seen within the left atrium. 4. The right atrium and right ventricle are normal in size. No clot or thrombus were seen within the right side. 5. Mitral valve is calcified with mild mitral regurgitation noted by color Doppler flow. No mitral valve prolapse. No mitral valve stenosis. 6. Aortic valve is trileaflet with normal opening and closing pattern. No significant aortic stenosis or regurgitation was seen. 7. Tricuspid valve is normal in morphology with mild tricuspid regurgitation noted by color Doppler flow. Doppler across tricuspid valve estimated pulmonary artery pressure of 39+ right atrial pressure. 8. Pulmonic valve is functioning normally. 9. No pericardial effusion. IN CONCLUSION: 1. Mild to moderate left ventricular hypertrophy with normal systolic function. Estimated ejection fraction is 60%. Diastolic dysfunction is suggested by Doppler. 2. Mildly dilated left atrium. 3. Mild mitral and tricuspid regurgitation. 4. Pulmonary hypertension with estimated pulmonary artery pressure of 45 mmHg. Job ID: [id number] Dictated Date: 10/30/2016 15:25:41 Arc Furnace Operator Date: 10/31/2016 08:46:57 / dayana
--- NOTE | 2016-10-31 10:33 | Cardiology Progress Note ---
Subjective Subjective/Events-last exam Patient is sitting up in bed. Reports feeling better, but continues to have some dyspnea. Denies any CP or peripheral edema. Review of Systems General: No Chills, No Night Sweats, Fatigue Malaise HEENT: No Visual Changes, No Dysphasia, No Sore Throat Pulmonary: Dyspnea CoughNo Pleuritic Chest Pain Cardiovascular: No: Chest Pain, Edema, Palpitations, Paroxysmal Noc. Dyspnea Gastrointestinal: No: Abdominal Pain, Nausea, Vomiting Genitourinary: No Dysuria, No Frequency Musculoskeletal: No: back pain, neck pain Neurological: No: Change in speech, Confusion, Numbness, Weakness Objective-Cardiology Exam Last Set of Vital Signs Vital Signs 10/30/16 10/31/16 04:00 08:00 Temp 97.2 Pulse 86 Resp 20 B/P 131/62 Pulse Ox 97 O2 Delivery High Flow NC O2 Flow Rate 4.00 FiO2 30 Capillary Refill : Less Than 3 Seconds I&O Bad tableGeneral: Alert, Oriented X3, Cooperative HEENT: Atraumatic, PERRLA Neck: Supple, No JVD, No Thyromegaly Lungs: Normal Air Movement, Other (bilateral exp wheezing) Heart: Regular Rate, Normal S1, Normal S2, No Murmurs Abdomen: Normal Bowel Sounds, Soft, No Tenderness, No Hepatosplenomegaly, No Masses Extremities: No Clubbing, No Cyanosis, No Edema, Normal Pulses, No Tenderness/ Swelling Skin: No Rashes, No Breakdown, Other (Chronic venous stasis changes) Neuro: Normal Speech Psych/Mental Status: Mental Status NL, Mood NL Results Lab Laboratory Tests 10/31/16 04:25 A/P-Cardiology Admission Diagnosis Acute respiratory failure Paroxysmal atrial flutter Sick sinus syndrome COPD Assessment/Plan Acute respiratory failure, was using BiPAP machine at home as needed,continues to slowly improved. Continue to monitor Severe COPD, followed by Dr. Zuniga, multiple hospitalization, using oxygen at home. Acute exacerbation at this time. Sick sinus syndrome, advanced AV block, paroxysmal atrial flutter, had dual- chamber pacemaker implanted in February 2011, has been followed by Dr. Cherry, no syncopal episodes were reported. History of nonischemic cardiomyopathy, had mild coronary artery disease per cardiac catheterization, 2D Echo done yesterday revealed diastolic dysfunction with EF 60%. Continue to diurese. Hypertension, monitor blood pressure and continue on home medication Hyperlipidemia, restart pravastatin. Continue to monitor lipids as outpatient History of chronic oral anticoagulation fo reducing the risk of stroke due to paroxysmal atrial flutter, maintained on Eliquis History of Lozano esophagus, peptic ulcer disease, maintained on Protonix history of tobaccoism. Patient has stopped smoking. Continue to monitor Clinical Quality Measures DVT/VTE Risk/Contraindication: Risk Factor Score Per Nursin RFS Level Per Nursing on Admit: 4+=Very High KELLY ROMERO Oct 31, 2016 10:32
[2016-10-31] MEDS ORDERED: guaiFENesin/CODEINE (ROBITUSSIN AC) 10ML UDC PO PRN (11:00)
[2016-10-31] MEDS ORDERED: BISACODYL 10 MG SUPP (DULCOLAX) PR NR (11:15)
--- NOTE | 2016-10-31 11:30 | Progress Note-Hospitalist ---
Progress Note HPI/CC on Admission noted details above deemed CORRECT and patient not communicating due to BiPAP in place in respiratory failure at the bedside agrees with plan Progress Notes/Assess & Plan Date Seen 10/31/16 Admission Dx/Process Acute respiratory failure on chronic respiratory failure due to noncompliance with sleep apnea treatment in addition to severe COPD oxygen dependent CAD A fibrillation Pacemaker placement Hypertension Leukocytosis of unknown source likely stress-related since chest x-ray shows no infiltrate Diagonsis/Assessment & Plan Chart Review: WBC 8.3 K+ 3.3 Creat normal Pharmacy Review: Pt has Pseudomonas in sputum, sensitive. Recommends Levaquin. nurse examiner: RN states that pt requires cough medicine, as pt is coughing severely. Patient Interview: Dr. Eller informs pt that he will receive medication for his cough. Physical exam was stable. Pt states that he had a minor BM this morning, but would like some bowel meds. Pt states that he does not feel ready to DC. No fever vital signs stable, pleasant, very chronically ill and short of breath taking a breathing treatment through his BiPAP device Tachycardic at 92 and irregular Wheezing all [place] with mild tachypnea noted even on noninvasive ventilator support Trace edema Assessment: 1. hypercarbic respiratory failure with hypoxia with continued acute on chronic respiratory failure 2. Leukocytosis 3. hyperkalemia 4. hyponatremia 5. CAD 6. PAF 7. COPD 8. Constipation 9. Pseudomonas in sputum Plan: Lactulose Abx Robitussin-AC Swing bed eval landmark evaluation since this will be a long recovery Prognosis poor and will consult Palliative Scribed by Braydon Gong under the direct supervision of Dr. Eller. ZACK ELLER DO Oct 31, 2016 11:30
[2016-10-31 12:00] VITALS: BP 119/61
[2016-10-31] MEDS ORDERED: TROUGH ORDER-PHARMACY XX NR (13:00)
--- NOTE | 2016-10-31 13:59 | Cardiology Progress Note ---
Subjective Subjective/Events-last exam patient is feeling better, still having some shortness of breath and cough. No palpitation. Review of Systems General: No Chills, No Night Sweats, No Fatigue, No Malaise, No Appetite, No Other HEENT: No Head Aches, No Visual Changes, No Eye Pain, No Ear Pain, No Dysphasia , No Sinus Congestion, No Post Nasal Drip, No Sore Throat, No Other Pulmonary: Dyspnea CoughNo Pleuritic Chest Pain, No Other Cardiovascular: : Chest PainNo: Edema, Lt Headedness, Orthopnea, Other, Palpitations, Paroxysmal Noc. Dyspnea Objective-Cardiology Exam Last Set of Vital Signs Vital Signs 10/30/16 10/31/16 04:00 12:00 Temp 97.4 Pulse 75 Resp 20 B/P 119/61 Pulse Ox 97 O2 Delivery High Flow NC O2 Flow Rate 4.00 FiO2 30 Capillary Refill : Less Than 3 Seconds I&O Bad tableGeneral: Alert, Oriented X3, Cooperative HEENT: Atraumatic, PERRLA Neck: Supple, No JVD, No Thyromegaly Lungs: Normal Air Movement, Other (bilateral exp wheezing, bilateral rhonchi) Heart: Regular Rate, Normal S1, Normal S2, No Murmurs Abdomen: Normal Bowel Sounds, Soft, No Tenderness, No Hepatosplenomegaly, No Masses Extremities: No Clubbing, No Cyanosis, No Edema, Normal Pulses, No Tenderness/ Swelling Skin: No Rashes, No Breakdown, Other (Chronic venous stasis changes) Neuro: Normal Speech Psych/Mental Status: Mental Status NL, Mood NL Results Lab Laboratory Tests 10/31/16 04:25 A/P-Cardiology Admission Diagnosis Acute respiratory failure Paroxysmal atrial flutter Sick sinus syndrome COPD Assessment/Plan Acute respiratory failure, was using BiPAP machine at home as needed, continues to improve slowly. Continue to monitor Severe COPD, followed by Dr. Zuniga, multiple hospitalization, using oxygen at home, acute exacerbation, Pseudomonas grew in the sputum. Blood cultures are negative. Receiving aggressive antibiotic, managed by Dr. Zuniga. Sick sinus syndrome, advanced AV block, paroxysmal atrial flutter, had dual- chamber pacemaker implanted in February 2011, has been followed by Dr. Cherry, no syncopal episodes were reported. History of nonischemic cardiomyopathy, had mild coronary artery disease per cardiac catheterization, 2D Echo done yesterday revealed diastolic dysfunction with EF 60%. Continue to diurese. Hypertension, monitor blood pressure and continue on home medication Hyperlipidemia, continue current medication monitor blood pressure History of chronic oral anticoagulation fo reducing the risk of stroke due to paroxysmal atrial flutter, maintained on Eliquis, continue to monitor History of Lozano esophagus, peptic ulcer disease, maintained on Protonix History of tobaccoism. Patient has stopped smoking. Continue to monitor Clinical Quality Measures DVT/VTE Risk/Contraindication: Risk Factor Score Per Nursin RFS Level Per Nursing on Admit: 4+=Very High MORGAN EDWARDS MD Oct 31, 2016 13:59
--- NOTE | 2016-10-31 14:58 | Physical Therapy Daily Note ---
PT Daily Note-Current Subjective Declines OOB activity but agreeable to education while in bed. Mental Status Patient Orientation: Person, Place, Time, Situation Transfers Functional [place] Measure 0=Not Assessed/NA 4=Minimal Assistance 1=Total Assistance 5=Supervision or Setup 2=Maximal Assistance 6=Modified [place] 3=Moderate Assistance 7=Complete IndependenceIRFPAI Quality Coding Scale 6 Independent with activity with or without an assistive device 5 Patient requires set up or clean up by helper. Patient completes activity by themselves 4 Supervision or touching assist (CGA). [place] provide cues , steadying assist 3 The helper provides less than half the effort to complete the activity 2 The helper provides more than half the effort to complete the activity 1 Dependent. The helper does all the effort to complete an activity 7 Patient refused to complete or attempt activity 9 The patient did not perform the activity before the current illness or injury 88 Not attempted due to Medical conditions or safety concerns Treatments Spent time educating pt on importance of OOB activity and sitting up in chair for optimal lung health and to reduce the risk of skin breakdown. Discussed walking to from the bathroom for increased activity in room. Educated pt to use call light for supervision with mobility in room for safety reasons. Educated pt on energy conservation as well. Assessment Pt has been up in room, but does not want to get up with therapy this afternoon. PT Handmade Tile Artist Goals Handmade Tile Artist Goals PT Handmade Tile Artist Goals Time Frame: Nov 06, 2016 Transfers (B,C,W/C) (FIM): 7 Gait (FIM): 6 Gait distance (FIM): 3=150 ft Gait Assistive Device: FWW PT Plan Problem List Problem List: Activity Tolerance, Functional Strength Treatment/Plan Treatment Plan: Continue Plan of Care Treatment Plan: Bed Mobility, Education, Functional Activity Ev, Functional Strength, Gait, Safety, Therapeutic Exercise, Transfers Treatment Duration: Nov 06, 2016 Minutes/Day (M-F): 5-6 Safety Risks/Education Patient Education: Safety Issues (energy conservation) Teaching Recipient: Patient Teaching Methods: Discussion Response to Teaching: Verbalize Understanding Time/GCodes Time In: 1450 Time Out: 1500 Total Billed Treatment Time: 10 Total Billed Treatment visit FA 10 RAE CR PT Oct 31, 2016 14:58
[2016-10-31 16:05] VITALS: BP 108/61
[2016-10-31 19:20] VITALS: BP 123/61
[2016-10-31] MEDS: SIMvastatin 20 MG (ZOCOR) TAB PO SCH (20:45)
[2016-10-31] MEDS: LACTULOSE SYRUP 10GM/15ML (ENULOSE) 30ML UDC PO SCH ×3 (21:00→21:39)
[2016-11-01] VITALS: BP 127/80
[2016-11-01] MEDS: RT-ALBUTEROL/IPRATROPIUM 3 ML (DUONEB) VIAL INH SCH ×4 (02:35→14:37)
[2016-11-01 04:00] VITALS: BP 147/77
[2016-11-01] MEDS: PIPERACILLIN SODIUM/TAZOBACTAM 4.5 GM in NORMAL SALINE (BAXTER MINI) 100 ML IV SCH ×3 (04:40→12:56)
[2016-11-01] MEDS: methylPREDNISolone 40 MG/ML (Solu-MEDROL) VIAL IV SCH (05:11)
[2016-11-01 05:56] LABS: BASOPHILS % (AUTO) 0 % (0-10); EOSINOPHILS % (AUTO) 0 % (0-10); LYMPHOCYTES # (AUTO) 0.3 X 10^3 (1.0-4.0); LYMPHOCYTES % (AUTO) 4 % (12-44); MEAN CORPUSCULAR HEMOGLOBIN 34 PG (25-34); MEAN CORPUSCULAR HGB CONC 34 G/DL (32-36); MEAN CORPUSCULAR VOLUME 99 FL (80-99); MEAN PLATELET VOLUME 8.9 FL (7.4-10.4); MONOCYTES # (AUTO) 0.5 X 10^3 (0.0-1.0); MONOCYTES % (AUTO) 6 % (0-12); NEUTROPHILS # (AUTO) 6.5 X 10^3 (1.8-7.8); NEUTROPHILS % (AUTO) 89 % (42-75); PLATELET COUNT 173 10^3/uL (130-400); RED BLOOD COUNT 3.46 10^6/uL (4.35-5.85); RED CELL DISTRIBUTION WIDTH 13.8 % (10.0-14.5); WHITE BLOOD COUNT 7.2 10^3/uL (4.3-11.0)
[2016-11-01 06:16] LABS: ALANINE AMINOTRANSFERASE 29 U/L (0-55); ALBUMIN 3.4 G/DL (3.2-4.5); ANION GAP 9 MMOL/L (5-14); ASPARTATE AMINO TRANSFERASE 46 U/L (5-34); BILIRUBIN,TOTAL 0.5 MG/DL (0.1-1.0); BLOOD UREA NITROGEN 26 MG/DL (7-18); BUN/CREATININE RATIO 30; CALCIUM 8.9 MG/DL (8.5-10.1); CARBON DIOXIDE 34 MMOL/L (21-32); CHLORIDE 95 MMOL/L (98-107); CREATININE SERUM 0.87 MG/DL (0.60-1.30); GFR ESTIMATED > 60; GLUCOSE 147 MG/DL (70-105); POTASSIUM 3.2 MMOL/L (3.6-5.0); SODIUM 138 MMOL/L (135-145); TOTAL PROTEIN 5.3 G/DL (6.4-8.2)
--- NOTE | 2016-11-01 06:51 | Pulmonary Progress Note ---
Subjective Subjective/Events-last exam PT appears to be doing well. Exam Exam Vital Signs Date Time Temp Pulse Resp B/P Pulse Ox O2 Delivery O2 Flow Rate FiO2 11/01/16 04:00 97.8 76 20 147/77 96 High Flow NC 4.00 11/01/16 02:35 93 NIV Bilevel 4.00 11/01/16 00:00 97.4 78 20 127/80 94 High Flow NC 4.00 10/31/16 22:46 98 Nasal Cannula 4.00 10/31/16 20:45 High Flow NC 4.00 10/31/16 19:20 99.8 89 20 123/61 100 High Flow NC 4.00 10/31/16 19:01 98 High Flow N/C 4.00 10/31/16 16:05 96.9 86 26 108/61 97 High Flow NC 4.00 10/31/16 14:42 97 Nasal Cannula 4.00 10/31/16 12:00 97.4 75 20 119/61 97 High Flow NC 4.00 10/31/16 10:50 96 Nasal Cannula 4.00 10/31/16 08:35 High Flow NC 4.00 10/31/16 08:00 97.2 86 20 131/62 97 High Flow NC 4.00 10/31/16 07:28 92 NIV CPAP 4.00 I & O 11/01/16 07:00 Intake Total 1850 ml Output Total 200 ml Balance 1650 ml General Appearance: No Apparent Distress WD/WN Chronically ill Moderate Distress Obese HEENT: PERRL/EOMI Normal ENT Inspection Pharynx Normal Neck: Full Range of Motion Normal Inspection Non Tender Supple Carotid Bruit Respiratory: Chest Non Tender No Accessory Muscle Use No Respiratory Distress Accessory Muscle Use Crackles Decreased Breath Sounds Respiratory Distress Wheezing Other (on biPAP) Cardiovascular: Regular Rate, Rhythm No Edema No Gallop No JVD No Murmur Normal Peripheral Pulses Capillary Refill: Less Than 3 Seconds Gastrointestinal: non tender soft Extremity: Normal Capillary Refill Normal Inspection Normal Range of Motion Non Tender No Calf Tenderness No Pedal Edema Neurologic/Psychiatric: No Motor/Sensory Deficits Normal Mood/Affect Disoriented x3 Other (patient is resting, eyes close, moving all extremities) Skin: Normal Color Warm/Dry Lymphatic: No Adenopathy Results Lab Laboratory Tests 10/31/16 04:25 11/01/16 05:45 Assessment/Plan Assessment/Plan Severe COPDAE with acute on chronic respiratory failure -Pt is currently using home vent -SVNs Q4 -solumedrol - 40 Q6 --- change to prednisone taper -Possible landmark transfer PNeumonia pseudomonas - D/C vanco and continue Zosyn nonischemic cardiomyopathy -Lasix cardiology following Atrial fibrillation -Followed by Cardiology CHF Clinical Quality Measures DVT/VTE Risk/Contraindication: Risk Factor Score Per Nursin RFS Level Per Nursing on Admit: 4+=Very High CHRISTOPHER PHELPS DO Nov 01, 2016 06:51
--- NOTE | 2016-11-01 07:25 | Cardiology Progress Note ---
Subjective Subjective/Events-last exam Patient is in bed, feeling better, no new complaint, no chest pain Review of Systems General: No Chills, No Night Sweats, No Fatigue, No Malaise, No Appetite, No Other HEENT: No Head Aches, No Visual Changes, No Eye Pain, No Ear Pain, No Dysphasia , No Sinus Congestion, No Post Nasal Drip, No Sore Throat, No Other Pulmonary: Dyspnea CoughNo Pleuritic Chest Pain, No Other Cardiovascular: No: Chest Pain, Edema, Lt Headedness, Orthopnea, Other, Palpitations, Paroxysmal Noc. Dyspnea Objective-Cardiology Exam Last Set of Vital Signs Vital Signs 10/30/16 11/01/16 04:00 04:00 Temp 97.8 Pulse 76 Resp 20 B/P 147/77 Pulse Ox 96 O2 Delivery High Flow NC O2 Flow Rate 4.00 FiO2 30 Capillary Refill : Less Than 3 Seconds I&O Intake and Output 11/01/16 00:00 Intake Total 1790 ml Output Total 650 ml Balance 1140 ml Intake Oral 1590 ml IV Total 200 ml Output Urine Total 650 ml # Voids 3 # Bowel Movements 2 General: Alert, Oriented X3, Cooperative HEENT: Atraumatic, PERRLA Neck: Supple, No JVD, No Thyromegaly Lungs: Normal Air Movement, Other (bilateral exp wheezing, bilateral rhonchi) Heart: Regular Rate, Normal S1, Normal S2, No Murmurs Abdomen: Normal Bowel Sounds, Soft, No Tenderness, No Hepatosplenomegaly, No Masses Extremities: No Clubbing, No Cyanosis, No Edema, Normal Pulses, No Tenderness/ Swelling Skin: No Rashes, No Breakdown, Other (Chronic venous stasis changes) Neuro: Normal Speech Psych/Mental Status: Mental Status NL, Mood NL Results Lab Laboratory Tests 11/01/16 05:45 A/P-Cardiology Admission Diagnosis Acute respiratory failure Paroxysmal atrial flutter Sick sinus syndrome COPD Assessment/Plan Acute respiratory failure, was using BiPAP machine at home as needed, feeling better, continue on current treatment, followed by Dr Zuniga Severe COPD, followed by Dr. Zuniga, multiple hospitalization, using oxygen at home, acute exacerbation, Pseudomonas grew in the sputum. Blood cultures are negative. Receiving aggressive antibiotic, managed by Dr. Zuniga. Sick sinus syndrome, advanced AV block, paroxysmal atrial flutter, had dual- chamber pacemaker implanted in February 2011, has been followed by Dr. Cherry, no syncopal episodes were reported. History of nonischemic cardiomyopathy, had mild coronary artery disease per cardiac catheterization, 2D Echo done yesterday revealed diastolic dysfunction with EF 60%. Continue to diurese. Hypertension, monitor blood pressure and continue on home medication Hyperlipidemia, continue current medication monitor blood pressure History of chronic oral anticoagulation fo reducing the risk of stroke due to paroxysmal atrial flutter, maintained on Eliquis, continue to monitor History of Lozano esophagus, peptic ulcer disease, maintained on Protonix History of tobaccoism. Patient has stopped smoking. Continue to monitor Clinical Quality Measures DVT/VTE Risk/Contraindication: Risk Factor Score Per Nursin RFS Level Per Nursing on Admit: 4+=Very High MORGAN EDWARDS MD Nov 01, 2016 07:25
[2016-11-01] MEDS: DILTIAZEM 300 MG (CARDIZEM CD) CAP PO SCH (08:15)
[2016-11-01] MEDS: KCL 10 MEQ TAB (MICRO K) PO SCH (08:15)
[2016-11-01] MEDS: PANTOPRAZOLE 40 MG (PROTONIX) TAB PO SCH (08:15)
[2016-11-01] MEDS: DIGOXIN 0.25 MG (LANOXIN) TAB PO SCH (08:15)
[2016-11-01] MEDS: lisINopril 20 MG (ZESTRIL) TAB PO SCH (08:16)
[2016-11-01] MEDS: FUROSEMIDE 40 MG (LASIX) TAB PO SCH (08:16)
[2016-11-01] MEDS: APIXABAN 5 MG (ELIQUIS) TABLET PO SCH (08:17)
[2016-11-01] MEDS: LACTULOSE SYRUP 10GM/15ML (ENULOSE) 30ML UDC PO SCH (08:22)
[2016-11-01] MEDS ORDERED: predniSONE 10 MG TAB PO SCH (09:00)
--- NOTE | 2016-11-01 09:38 | Physical Therapy Daily Note ---
PT Daily Note-Current Subjective Patient is in bed and agrees to PT. Patient states he is up independently in room without difficulty. Pain Numeric Pain Scale: 0-No Pain Location: No Pain Reported Mental Status Patient Orientation: Normal For Age Attachments: Oxygen (4L HF) Transfers Functional Ethan Measure 0=Not Assessed/NA 4=Minimal Assistance 1=Total Assistance 5=Supervision or Setup 2=Maximal Assistance 6=Modified Ethan 3=Moderate Assistance 7=Complete IndependenceIRFPAI Quality Coding Scale 6 Independent with activity with or without an assistive device 5 Patient requires set up or clean up by helper. Patient completes activity by themselves 4 Supervision or touching assist (CGA). [place] provide cues , steadying assist 3 The helper provides less than half the effort to complete the activity 2 The helper provides more than half the effort to complete the activity 1 Dependent. The helper does all the effort to complete an activity 7 Patient refused to complete or attempt activity 9 The patient did not perform the activity before the current illness or injury 88 Not attempted due to Medical conditions or safety concerns Transfers (B, C, W/C) (FIM): 7 Scootin Rollin Supine to/from Sit: 7 Sit to/from Stand: 7 Gait Training Gait (FIM): 6 Distance (FIM): 3=150 ft Distance: 300' x 2 Gait Level of Assist: 6 Gait Assistive Device: FWW assist for O2 tank only; 1 standing recovery period due to slight SOA Assessment SAO2 >90% on 4L NC HF. Patient improved with gross motor skills and cardiopulmonary function. May dismiss to home with spouse on this date. PT Fdc Goals Molder Machine Tender Goals PT Fdc Goals Time Frame: Nov 06, 2016 Transfers (B,C,W/C) (FIM): 7 Gait (FIM): 6 Gait distance (FIM): 3=150 ft Gait Assistive Device: FWW PT Plan Treatment/Plan Treatment Plan: Continue Plan of Care Treatment Plan: Bed Mobility, Education, Functional Activity Ev, Functional Strength, Gait, Safety, Therapeutic Exercise, Transfers Treatment Duration: Nov 06, 2016 Minutes/Day (M-F): 5-6 Time/GCodes Time In: 910 Time Out: 933 Total Billed Treatment Time: 23 Total Billed Treatment 1 visit FA x 2 23 min KAMILA DUGAN PT Nov 01, 2016 09:38
[2016-11-01] MEDS ORDERED: BISACODYL 10 MG SUPP (DULCOLAX) ONE (09:43)
[2016-11-01] MEDS ORDERED: KCL 20 MEQ TAB (K-DUR) PO NR (09:45)
[2016-11-01] MEDS: ALPRAZolam 1 MG (XANAX) TAB PO PRN (10:18)
[2016-11-01] MEDS ORDERED: TRAM50TA2 PO (11:51)
[2016-11-01] MEDS ORDERED: PRED10TA22 PO (11:51)
[2016-11-01] MEDS ORDERED: LEVO750T9 PO (11:53)
--- NOTE | 2016-11-01 11:54 | Discharge Instructions ---
Discharge Instructions Discharge Medications New, Converted or Re-Newed RX: Transmitted to Pharmacy New Medications: Levofloxacin (Levaquin) 750 Mg Tablet 750 MG PO DAILY #3 TAB Prednisone (Prednisone) 10 Mg Tab.ds.pk 10 MG PO DAILY Take 6 tabs(60mg)daily,decrease by 1 tab(10mg)every other day. # 42 PKG Continued Medications: Albuterol Sulfate (Proair Hfa) 8.5 Gm Hfa.aer.ad 2 PUFF INH QID PRN SHORTNESS OF BREATH Alprazolam (Alprazolam) 1 Mg Tablet 1 MG PO Q8H PRN ANXIETY Apixaban (Eliquis Tablet) 5 Mg Tablet 5 MG PO BID Arformoterol Tartrate (Brovana) 15 Mcg/2 Ml Vial.neb 15 MCG IH QID INHALER Beclomethasone Dipropionate (Qvar) 8.7 Gm Aer.w.adap 2 PUFF IH BID Cholecalciferol (Vitamin D3) (Vitamin D3) 1,000 Unit Capsule 1000 UNIT PO DAILY CAP Citalopram Hydrobromide (Citalopram HBr) 20 Mg Tablet 20 MG PO DAILY Digoxin (Digoxin) 250 Mcg Tablet 250 MCG PO DAILY TAB Diltiazem HCl (Cartia Xt) 300 Mg Cap.er.24h 300 MG PO DAILY Furosemide (Furosemide) 40 Mg Tablet 40 MG PO DAILY Lactulose (Lactulose) 10 Gm/15 Ml Solution 15 ML PO BID PRN CONSTIPATION Lisinopril (Lisinopril) 40 Mg Tablet 40 MG PO DAILY TAB Montelukast Sodium (Montelukast Sodium) 10 Mg Tablet 10 MG PO HS Omeprazole (Omeprazole) 40 Mg Capsule.dr 40 MG PO BID CAP Pantoprazole Sodium (Pantoprazole Sodium) 40 Mg Tablet.dr 40 MG PO BID Potassium Chloride (Potassium Chloride) 10 Meq Tablet.er 10 MEQ PO DAILY Pravastatin Sodium (Pravastatin Sodium) 40 Mg Tablet 40 MG PO DAILY Roflumilast (Daliresp) 500 Mcg Tablet 500 MCG PO DAILY@1700 TAB Sucralfate (Sucralfate) 1 Gm Tablet 1 GM PO QID PRN STOMACH UPSET TAB Thiamine HCl (Vitamin B-1) 100 Mg Tablet 100 MG PO DAILY TAB Tiotropium [place] (Spiriva) 1 Inh Aerp 2 PUFF IH DAILY Tramadol HCl (Tramadol HCl) 50 Mg Tablet 50 MG PO Q6H PRN PAIN #30 (This prescription has been renewed) Zolpidem Tartrate (Zolpidem Tartrate) 10 Mg Tablet 10 MG PO HS TAB Patient Instructions Goal/Follow Up Appt: Dr Carpenter in [address] Zuniga in 2 weeks Activity & Diet Discharge Diet: Low Sodium Diet, Cardiac Diet Activity as Tolerated: Yes ZACK TORRES DO Nov 01, 2016 11:53
[2016-11-01 12:00] VITALS: BP 138/67
--- NOTE | 2016-11-01 12:18 | Discharge Summary-Hospitalist ---
Diagnosis/Chief Complaint Date of Admission Oct 29, 2016 at 10:00 Date of Discharge Discharge Date: Nov 01, 2016 Admission Diagnosis Acute respiratory failure on chronic respiratory failure due to noncompliance with sleep apnea treatment in addition to severe COPD oxygen dependent CAD A fibrillation Pacemaker placement Hypertension Leukocytosis of unknown source likely stress-related since chest x-ray shows no infiltrate Discharge Diagnosis 1. hypercarbic respiratory failure with hypoxia with continued acute on chronic respiratory failure 2. Leukocytosis 3. hyperkalemia 4. hyponatremia 5. CAD 6. PAF 7. COPD 8. Constipation 9. Pseudomonas in sputum Chart Review: WBC 8.3 K+ 3.3 Creat normal Pharmacy Review: Pt has Pseudomonas in sputum, sensitive. Recommends Levaquin. tankerman: RN states that pt requires cough medicine, as pt is coughing severely. Patient Interview: Dr. Torres informs pt that he will receive medication for his cough. Physical exam was stable. Pt states that he had a minor BM this morning, but would like some bowel meds. Pt states that he does not feel ready to DC. No fever vital signs stable, pleasant, very chronically ill and short of breath taking a breathing treatment through his BiPAP device Tachycardic at 92 and irregular Wheezing all francisco with mild tachypnea noted even on noninvasive ventilator support Trace edema Assessment: 1. hypercarbic respiratory failure with hypoxia with continued acute on chronic respiratory failure 2. Leukocytosis 3. hyperkalemia 4. hyponatremia 5. CAD 6. PAF 7. COPD 8. Constipation 9. Pseudomonas in sputum Plan: Lactulose Abx Robitussin-AC Swing bed eval landmark evaluation since this will be a long recovery Prognosis poor and will consult Palliative Scribed by Braydon Gong under the direct supervision of Dr. Torres. Reason Hospital Visit/Course noted details above deemed CORRECT and patient not communicating due to BiPAP in place in respiratory failure at the bedside agrees with plan no fever vital signs stable, pleasant, walking and halls with PT and looking very much improved Irregular rate and rhythm, distant breath sounds but much improved wheezing and good air expansion No edema Hospital course: Patient had a complex hospital course he was admitted for acute hypercapnic respiratory failure due to noncompliance with sleep apnea and COPD management. He was managed on noninvasive ventilator support with good results and chest x-ray remained clear of infiltrates but Pseudomonas was noted in sputum so he was placed on antibiotics empirically then narrowed for coverage of pseudomonas. Overall he did very well constipation was resolved with lactulose in addition IV steroids were tapered by Dr. Zuniga and then to mask was arranged to help with compliance at home and he was deemed stable for discharge with close follow-up with Dr. Zuniga and Dr. Carpenter. Poor prognosis remains and I did consult palliative care in preparation for the severity of his COPD that will eventually decline more and more and will need hospice care in the future. Discharge Summary Discharge Physical Examination Allergies: Coded Allergies: NKANo Known Allergies (Verified Allergy, Unknown, 12/12/15) Vitals & I&Os Vital Signs Date Time Temp Pulse Resp B/P Pulse Ox O2 Delivery O2 Flow Rate FiO2 11/01/16 11:14 97 Nasal Cannula 4.00 11/01/16 04:00 97.8 76 20 147/77 10/30/16 04:00 30 Hospital Course Labs (last 24 hrs) Laboratory Tests 11/01/16 05:45: Alanine Aminotransferase (ALT/SGPT) 29, Albumin 3.4, Alkaline Phosphatase 52, Anion Gap 9, Aspartate Amino Transf (AST/SGOT) 46H, BUN/Creatinine Ratio 30, Basophils # (Auto) 0.0, Basophils (%) (Auto) 0, Blood Urea Nitrogen 26H, Calcium Level 8.9, Carbon Dioxide Level 34H, Chloride Level 95L, Creatinine 0.87 , Eosinophils # (Auto) 0.0, Eosinophils (%) (Auto) 0, Estimat Glomerular Filtration Rate > 60, Glucose Level 147H, Hematocrit 34L, Hemoglobin 11.6L, Lymphocytes # (Auto) 0.3L, Lymphocytes (%) (Auto) 4L, Mean Corpuscular Hemoglobin 34, Mean Corpuscular Hemoglobin Concent 34, Mean Corpuscular Volume 99, Mean Platelet Volume 8.9, Monocytes # (Auto) 0.5, Monocytes (%) (Auto) 6, Neutrophils # (Auto) 6.5, Neutrophils (%) (Auto) 89H, Platelet Count 173, Potassium Level 3.2L, Red Blood Count 3.46L, Red Cell Distribution Width 13.8, Sodium Level 138, Total Bilirubin 0.5, Total Protein 5.3L, White Blood Count 7.2 Microbiology 10/29/16 Blood Culture - Preliminary, Resulted No growth 10/29/16 Gram Stain - Final, Complete 10/29/16 Sputum Culture - Final, Complete Pseudomonas Aeruginosa Pending Labs Laboratory Tests 11/01/16 05:45: Alanine Aminotransferase (ALT/SGPT) 29, Albumin 3.4, Alkaline Phosphatase 52, Anion Gap 9, Aspartate Amino Transf (AST/SGOT) 46, BUN/Creatinine Ratio 30, Basophils # (Auto) 0.0, Basophils (%) (Auto) 0, Blood Urea Nitrogen 26, Calcium Level 8.9, Carbon Dioxide Level 34, Chloride Level 95, Creatinine 0.87, Eosinophils # (Auto) 0.0, Eosinophils (%) (Auto) 0, Estimat Glomerular Filtration Rate > 60, Glucose Level 147, Hematocrit 34, Hemoglobin 11.6, Lymphocytes # (Auto) 0.3, Lymphocytes (%) (Auto) 4, Mean Corpuscular Hemoglobin 34, Mean Corpuscular Hemoglobin Concent 34, Mean Corpuscular Volume 99, Mean Platelet Volume 8.9, Monocytes # (Auto) 0.5, Monocytes (%) (Auto) 6, Neutrophils # (Auto) 6.5, Neutrophils (%) (Auto) 89, Platelet Count 173, Potassium Level 3.2, Red Blood Count 3.46, Red Cell Distribution Width 13.8, Sodium Level 138, Total Bilirubin 0.5, Total Protein 5.3, White Blood Count 7.2 Discharge Home Medications: Active Scripts Active Levaquin (Levofloxacin) 750 Mg Tablet 750 Mg PO DAILY Prednisone 10 Mg Tab.ds.pk 10 Mg PO DAILY Take 6 tabs(60mg)daily,decrease by 1 tab(10mg)every other day. Tramadol HCl 50 Mg Tablet 50 Mg PO Q6H PRN Reported Zolpidem Tartrate 10 Mg Tablet 10 Mg PO HS Brovana (Arformoterol Tartrate) 15 Mcg/2 Ml Vial.neb 15 Mcg IH QID Digoxin 250 Mcg Tablet 250 Mcg PO DAILY Omeprazole 40 Mg Capsule.dr 40 Mg PO BID Vitamin D3 (Cholecalciferol (Vitamin D3)) 1,000 Unit Capsule 1,000 Unit PO DAILY Daliresp (Roflumilast) 500 Mcg Tablet 500 Mcg PO DAILY@1700 Vitamin B-1 (Thiamine HCl) 100 Mg Tablet 100 Mg PO DAILY Lisinopril 40 Mg Tablet 40 Mg PO DAILY Sucralfate 1 Gm Tablet 1 Gm PO QID PRN Montelukast Sodium 10 Mg Tablet 10 Mg PO HS Qvar (Beclomethasone Dipropionate) 8.7 Gm Aer.w.adap 2 Puff IH BID Alprazolam 1 Mg Tablet 1 Mg PO Q8H PRN Cartia Xt (Diltiazem HCl) 300 Mg Cap.er.24h 300 Mg PO DAILY Lactulose 10 Gm/15 Ml Solution 15 Ml PO BID PRN Potassium Chloride 10 Meq Tablet.er 10 Meq PO DAILY Proair Hfa (Albuterol Sulfate) 8.5 Gm Hfa.aer.ad 2 Puff INH QID PRN Pantoprazole Sodium 40 Mg Tablet.dr 40 Mg PO BID Spiriva (Tiotropium [place]) 1 Inh Aerp 2 Puff IH DAILY Pravastatin Sodium 40 Mg Tablet 40 Mg PO DAILY Citalopram HBr (Citalopram Hydrobromide) 20 Mg Tablet 20 Mg PO DAILY Furosemide 40 Mg Tablet 40 Mg PO DAILY Eliquis Tablet (Apixaban) 5 Mg Tablet 5 Mg PO BID Instructions to patient/family Please see electonic discharge instructions given to patient. Clinical Quality Measures DVT/VTE Risk/Contraindication: Risk Factor Score Per Nursin RFS Level Per Nursing on Admit: 4+=Very High ZACK TORRES DO Nov 01, 2016 12:18
[2016-11-01 15:47] VITALS: BP 138/67
--- NOTE | 2016-11-14 10:37 | Physician Query-General Query ---
Physician Query-General Query to Physician: Conflicting documentation between Dr. Zuniga's returned query and your discharge summary requires further clarification regarding the following diagnoses: 1. Was sepsis ruled in or out? 2. Was acute renal failure ruled in or out? 3. If acute renal failure, was it related to sepsis or other etiology? 4. Was pseudomonas pneumonia ruled in or out? 5. If no pneumonia, was another condition indicated for pseudomonas in sputum? PHYSICIAN RESPONSE: Based on the clinical findings in the record, please respond to the query above on this document as an addendum. Possible, probable, or questionable diagnosis can be coded for INPATIENTS ONLY. Physician Response: Physician Response 1. Was sepsis ruled in or out? sepsis was ruled in 2. Was acute renal failure ruled in or out? acute renal failure was ruled in 3. If acute renal failure, was it related to sepsis or other etiology? due to sepsis 4. Was pseudomonas pneumonia ruled in or out? ruled in 5. If no pneumonia, was another condition indicated for pseudomonas in sputum? If you have questions please contact: Egg Worker:Jeanine Carrington [facility] Ext:[phone] Thank you for your time and cooperation. Clinical Laborer General/Egg Worker This is a permanent part of the medical record JEANINE CARRINGTON Nov 14, 2016 10:37 ZACK TORRES DO Nov 14, 2016 11:43
== END 2016-11-01 15:53 | disposition home or self-care (01) | DRG 871 ==
LOC: EDUNIT# 08:15 → ER 08:16 → ICU 10:00 → 4TH 10-30 11:15
PROVIDERS: ADMIT Internal Medicine; ATTEND Internal Medicine Critical Care Medicine
DX: A41.52 Sepsis due to Pseudomonas (principal); R65.20 Severe sepsis without septic shock; J15.1 Pneumonia due to Pseudomonas; J96.22 Acute and chronic respiratory failure with hypercapnia; J96.21 Acute and chronic respiratory failure with hypoxia; N17.9 Acute kidney failure, unspecified; J44.1 Chronic obstructive pulmonary disease with (acute) exacerbation; G47.30 Sleep apnea, unspecified; I42.9 Cardiomyopathy, unspecified; I48.92 Unspecified atrial flutter; I48.0 Paroxysmal atrial fibrillation; E87.1 Hypo-osmolality and hyponatremia; J45.909 Unspecified asthma, uncomplicated; I10 Essential (primary) hypertension; I25.10 Atherosclerotic heart disease of native coronary artery without angina pectoris; E78.00 Pure hypercholesterolemia, unspecified; E87.5 Hyperkalemia; K59.09 Other constipation; Z91.19 Patient's noncompliance with other medical treatment and regimen; Z99.81 Dependence on supplemental oxygen; Z87.891 Personal history of nicotine dependence; Z95.0 Presence of cardiac pacemaker; Z23 Encounter for immunization
CPT/HCPCS: 36415; 71010; 80053; 81000; 82805; 83605; 83735; 83880; 84100; 84132; 85007; 85025; 85027; 86141; 87040; 87070; 87077; 87186; 87205; 87804; 93005; 93041; 93306; 94640; 94660; 94760

== ENCOUNTER 2017-07-18 14:31 | Inpatient (IN) | payer MEDICARE, OTHER ==
[2017-07-18] VITALS (13 sets, daily range): BP systolic 131–160; BP diastolic 74–93
[~2017-07-18] VITALS: Ht 180.3 cm; Wt 91.6 kg
[~2017-07-18 14:31] MED LIST changes: +ARFO15VI3 IH; +BECL8.7A7 IH; +CHOL10007 PO; +DIGO250T PO; +LEVO750T9 PO; +MONT10TA24 PO; +OMEP40CA36 PO; +PRED10TA22 PO; +ROFL500T4 PO; +THIA100T7 PO
[2017-07-18] MEDS ORDERED: TETANUS,DIPTH,PERTUSS P/F (BOOSTRIX) 0.5 ML VIAL IM ONE (14:45)
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
[2017-07-18 15:19] LABS: BASOPHILS % (AUTO) 0 % (0-10); EOSINOPHILS # (AUTO) 0.1 10^3/uL (0.0-0.3); EOSINOPHILS % (AUTO) 1 % (0-10); LYMPHOCYTES # (AUTO) 0.6 X 10^3 (1.0-4.0); LYMPHOCYTES % (AUTO) 10 % (12-44); MEAN CORPUSCULAR HEMOGLOBIN 31 PG (25-34); MEAN CORPUSCULAR HGB CONC 34 G/DL (32-36); MEAN CORPUSCULAR VOLUME 91 FL (80-99); MONOCYTES # (AUTO) 0.6 X 10^3 (0.0-1.0); MONOCYTES % (AUTO) 9 % (0-12); NEUTROPHILS # (AUTO) 4.7 X 10^3 (1.8-7.8); NEUTROPHILS % (AUTO) 79 % (42-75); PLATELET COUNT 172 10^3/uL (130-400); RED CELL DISTRIBUTION WIDTH 14.6 % (10.0-14.5); WHITE BLOOD COUNT 5.9 10^3/uL (4.3-11.0)
[2017-07-18 15:29] LABS: INR 1.1 (0.8-1.4); PROTHROMBIN TIME PATIENT 14.4 SEC (12.2-14.7)
--- NOTE | 2017-07-18 15:34 | Diagnostic Imaging Report ---
INDICATION: Dizziness. Fall. COMPARISON: 10/30/2016. FINDINGS: Single frontal view of the chest demonstrates normal mild cardiomegaly. Pulmonary vasculature is within normal limits. Left-sided dual-lead pacemaker is noted. The lungs are well aerated and clear. No large pleural effusion or pneumothorax is seen. The visualized osseous structures show no acute abnormalities. IMPRESSION: 1. Mild cardiomegaly, but no evidence of overt failure. Dictated by: Dictated on workstation # [id number]
--- NOTE | 2017-07-18 15:36 | Diagnostic Imaging Report ---
INDICATION: Fall with left lower leg injury. FINDINGS: AP and lateral views of the left lower leg reveal no definite acute fracture or malalignment. There is irregularity about the medial and lateral malleoli which may represent old fractures. No abnormal lytic or sclerotic focus is seen. IMPRESSION: Deformities of medial and lateral malleoli may be related to old injuries although clinical correlation is recommended. Otherwise, no acute abnormalities detected. Dictated by: Dictated on workstation # [id number]
[2017-07-18 15:43] LABS: ALANINE AMINOTRANSFERASE 33 U/L (0-55); ALBUMIN 3.8 GM/DL (3.2-4.5); ALCOHOL 168 MG/DL (<10); ANION GAP 16 MMOL/L (5-14); ASPARTATE AMINO TRANSFERASE 46 U/L (5-34); BILIRUBIN,TOTAL 0.5 MG/DL (0.1-1.0); BLOOD UREA NITROGEN 8 MG/DL (7-18); BUN/CREATININE RATIO 11; CALCIUM 8.7 MG/DL (8.5-10.1); CARBON DIOXIDE 20 MMOL/L (21-32); CHLORIDE 88 MMOL/L (98-107); CREATINE KINASE 78 U/L (30-200); CREATININE SERUM 0.74 MG/DL (0.60-1.30); GFR ESTIMATED > 60; GLUCOSE 84 MG/DL (70-105); MAGNESIUM 1.8 MG/DL (1.8-2.4); POTASSIUM 4.1 MMOL/L (3.6-5.0); TOTAL PROTEIN 6.3 GM/DL (6.4-8.2)
--- NOTE | 2017-07-18 15:44 | Diagnostic Imaging Report ---
EXAM: CT head. TECHNIQUE: Noncontrast axial images of the brain were obtained. INDICATION: Dizziness and lightheadedness. FINDINGS: There is no intracranial hemorrhage, edema or mass effect. The brain parenchyma appears unremarkable. No hydrocephalus. The visualized portions of the orbits and paranasal sinuses appear unremarkable. IMPRESSION: Unremarkable study. Dictated by: Dictated on workstation # [id number]
[2017-07-18 15:47] LABS: SODIUM 124 MMOL/L (135-145)
[2017-07-18 15:50] LABS: TROPONIN I < 0.30 NG/ML (<0.30)
[2017-07-18 16:31] LABS: BILIRUBIN,URINE NEGATIVE (NEGATIVE); KETONES,URINE NEGATIVE (NEGATIVE); LEUKOCYTE ESTERASE ,URINE NEGATIVE (NEGATIVE); NITRITE,URINE NEGATIVE (NEGATIVE); PH,URINE 5 (5-9); PROTEIN,URINE 2+ (NEGATIVE); UROBILINOGEN,URINE NORMAL (NORMAL)
[2017-07-18 16:39] LABS: HYALINE CASTS, URINE 0-2 /LPF; SQUAMOUS EPITHELIAL CELL,UR RARE /HPF; WBC,URINE 0-2 /HPF
[2017-07-18] MEDS ORDERED: 1/2 NS IV SOLUTION 1,000 ML IV PRN (17:08)
[2017-07-18] MEDS ORDERED: ONDANSETRON 4 MG/2 ML (SDV) Z0FRAN IV PRN (17:15)
[2017-07-18] MEDS ORDERED: LORazepam 1 MG (ATIVAN) TAB PO PRN (17:15)
[2017-07-18] MEDS ORDERED: ONDANSETRON 4 MG (ZOFRAN) ORAL DISSOLVE TAB SL PRN (17:15)
[2017-07-18] MEDS ORDERED: NS IV 1000 ML 1,000 ML IV SCH (17:15)
[2017-07-18] MEDS ORDERED: D5 1/2 NS 1000 ML IV SOLUTION 1,000 ML IV PRN (17:15)
[2017-07-18] MEDS ORDERED: LORazepam INJ 2 MG/ML (ATIVAN) VIAL IM/IV PRN (17:15)
[2017-07-18] MEDS ORDERED: SENNA W/DOCUSATE (SENOKOT S) TABLET PO PRN (17:15)
[2017-07-18] MEDS ORDERED: ANTACID SUSP 30 ML UDC (MYLANTA) PO PRN (17:15)
[2017-07-18] MEDS ORDERED: LORazepam INJ 2 MG/ML (ATIVAN) VIAL IV PRN (17:15)
[2017-07-18] MEDS ORDERED: NS IV 1000 ML 1,000 ML ONE (17:18)
[2017-07-18 18:15] LABS: BILIRUBIN,URINE NEGATIVE (NEGATIVE); KETONES,URINE NEGATIVE (NEGATIVE); LEUKOCYTE ESTERASE ,URINE NEGATIVE (NEGATIVE); NITRITE,URINE NEGATIVE (NEGATIVE); PH,URINE 7 (5-9); PROTEIN,URINE NEGATIVE (NEGATIVE); UROBILINOGEN,URINE NORMAL (NORMAL)
[2017-07-18 18:22] LABS: WBC,URINE RARE /HPF
[2017-07-18] MEDS ORDERED: ZOLPIDEM 5 MG (AMBIEN) TAB PO SCH (21:00)
[2017-07-18] MEDS: THIAMINE 100 MG (VITAMIN B-1) TAB PO SCH (22:04)
[2017-07-18] MEDS: FOLIC ACID 1 MG TAB PO SCH (22:04)
[2017-07-18] MEDS: MAGNESIUM OXIDE (MAG-OX)400 MG TAB PO SCH (22:04)
[2017-07-18] MEDS ORDERED: ZOLPIDEM 5 MG (AMBIEN) TAB ONE (22:06)
[2017-07-18] MEDS: MUPIROCIN 2% OINT 22 GM (BACTROBAN) TUBE TOP SCH (22:19)
[2017-07-19] VITALS (7 sets, daily range): BP systolic 140–169; BP diastolic 75–90
[2017-07-19 03:43] LABS: BASOPHILS % (AUTO) 0 % (0-10); EOSINOPHILS # (AUTO) 0.1 10^3/uL (0.0-0.3); EOSINOPHILS % (AUTO) 2 % (0-10); LYMPHOCYTES # (AUTO) 0.9 X 10^3 (1.0-4.0); LYMPHOCYTES % (AUTO) 16 % (12-44); MEAN CORPUSCULAR HEMOGLOBIN 31 PG (25-34); MEAN CORPUSCULAR HGB CONC 34 G/DL (32-36); MEAN CORPUSCULAR VOLUME 91 FL (80-99); MEAN PLATELET VOLUME 9.3 FL (7.4-10.4); MONOCYTES # (AUTO) 0.7 X 10^3 (0.0-1.0); MONOCYTES % (AUTO) 14 % (0-12); NEUTROPHILS # (AUTO) 3.5 X 10^3 (1.8-7.8); NEUTROPHILS % (AUTO) 68 % (42-75); PLATELET COUNT 166 10^3/uL (130-400); RED BLOOD COUNT 3.69 10^6/uL (4.35-5.85); WHITE BLOOD COUNT 5.2 10^3/uL (4.3-11.0)
[2017-07-19 04:04] LABS: ALANINE AMINOTRANSFERASE 33 U/L (0-55); ALBUMIN 3.7 GM/DL (3.2-4.5); ANION GAP 9 MMOL/L (5-14); ASPARTATE AMINO TRANSFERASE 46 U/L (5-34); BILIRUBIN,TOTAL 0.8 MG/DL (0.1-1.0); BLOOD UREA NITROGEN 8 MG/DL (7-18); BUN/CREATININE RATIO 11; CARBON DIOXIDE 29 MMOL/L (21-32); CHLORIDE 98 MMOL/L (98-107); CREATININE SERUM 0.73 MG/DL (0.60-1.30); GFR ESTIMATED > 60; GLUCOSE 90 MG/DL (70-105); SODIUM 136 MMOL/L (135-145); TOTAL PROTEIN 5.8 GM/DL (6.4-8.2)
[2017-07-19] MEDS ORDERED: MULTIVIT W/MINERALS TAB (THERAGRAN M) PO SCH (07:00)
--- NOTE | 2017-07-19 07:55 | Consultation-Cardiology ---
HPI-Cardiology Cardiology Consultation: Date of Consultation 07/19/17 Time Seen by Provider: 08:00 Date of Admission 07-18-17 Attending Physician Jarad Carpenter DO Admitting Physician Jarad Carpenter DO Consulting Physician Jade Cherry MD HPI: Chief Complaint: Hyponatremia Syncope Mr. Christopher is a 72 year old male admitted to ICU 6 from the ED. His is present at the bedside. He states he has been in his usual state of health. He reports chronic shortness of breath, which he feels has been unchanged in the recent past. He reports yesterday he drove to a dumpster at his sons house. He took off his oxygen and walked to the dumpster. He reports there were tree limbs in front of the dumpster. He states he tripped over them and was unable to get up. He reports he was becoming increasingly short of breath without his oxygen on. He called his and when she arrived she reports he was very short of breath and weak. She reports he was confused. She quickly re -applied his oxygen. He reports he began to feel better after his oxygen was on , however he remained too weak to get up and his spouse was unable to help him. They then called EMS. He does report he had approx 3 beers before he went to throw the trash away. He denies any syncope or near syncope. He does not report any CP, palpitations. He does not report any n/v/d. He does not report any LE edema. Review of Systems-Cardiology Review of Systems Constitutional: As described under HPI, No As described under HPI, No chills, No fever, No lightheadedness Eyes: No blindness, No blurred vision, No drainage, No decreased acuity, No foreign body sensation, No pain, No vision change Ears/Nose/Throat: No ear discharge, No ear pain, No nasal drainage, No ulcerations Respiratory: As described under HPI Cardiovascular: As described under HPI Gastrointestinal: No abdomen distended, No abdominal pain, No blood streaked bowels, No constipation, No diarrhea, No nausea, No vomiting, No stool coloration changes Genitourinary: No burning, No dysuria, No discharge, No frequency, No flank pain, No hematuria, No urgency Skin: No rash, other (wound to his pinto, left side; chronic bilat LE tissue discoloration), No skin related problems, No ulcerations Psychiatric/Neurological: No anxiety, No depression, No seizure, No focal weakness, No syncope Hematologic: No bleeding abnormalities OIF-Dywkgx-Ckqprl Hx Patient Social History Alcohol Use: Regular Use Recreational Drug Use: No Smoking Status: Former Smoker Former smoker/When Quit: Nov 11, 2012 Type Used: Cigarettes Recent Foreign Travel: No Recent Infectious Disease Expo: No Physical Abuse Screen: No Sexual Abuse: No Immunizations Up To Date Tetanus Booster (TDap): Unknown Date of Pneumonia Vaccine: Jul 29, 2014 Date of Influenza Vaccine: Aug 05, 2015 Past Medical History PMH As described under Assessment. Family Medical History Family Medical History: He reports his father had CAD and HTN. No h/o premature CAD or SCD. Family History: 19 FATHER Alzheimer's disease Diabetes mellitus Hypertension Myocardial infarction (60's) 19 MOTHER Alzheimer's disease (70's) Allergies and Home Medications Allergies Coded Allergies: NKANo Known Allergies (Verified Allergy, Unknown, 07/18/17) Home Medications Albuterol Sulfate 8.5 Gm Hfa.aer.ad, 2 PUFF INH QID PRN for SHORTNESS OF BREATH, (Reported) Alprazolam 1 Mg Tablet, 1 MG PO TID PRN for ANXIETY, (Reported) Apixaban 5 Mg Tablet, 5 MG PO BID, (Reported) Arformoterol Tartrate 15 Mcg/2 Ml Vial.neb, 15 MCG IH BID, (Reported) Beclomethasone Dipropionate 8.7 Gm Aer.w.adap, 1 PUFF IH DAILY, (Reported) Buspirone HCl 10 Mg Tablet, 10 MG PO BID, (Reported) Cholecalciferol (Vitamin D3) 1,000 Unit Capsule, 1,000 UNIT PO DAILY, (Reported) Citalopram Hydrobromide 20 Mg Tablet, 20 MG PO DAILY, (Reported) Diltiazem HCl 300 Mg Cap.er.24h, 300 MG PO DAILY, (Reported) Furosemide 40 Mg Tablet, 40 MG PO MoTh, (Reported) Lactulose 10 Gm/15 Ml Solution, 15 ML PO BID PRN for CONSTIPATION, (Reported) Lisinopril 40 Mg Tablet, 40 MG PO DAILY, (Reported) Montelukast Sodium 10 Mg Tablet, 10 MG PO DAILY, (Reported) Pantoprazole Sodium 40 Mg Tablet.dr, 40 MG PO BID, (Reported) Potassium Chloride 10 Meq Tablet.er, 10 MEQ PO MoTh, (Reported) Pravastatin Sodium 40 Mg Tablet, 40 MG PO DAILY, (Reported) Roflumilast 500 Mcg Tablet, 500 MCG PO 1700, (Reported) Sucralfate 1 Gm Tablet, 1 GM PO ACHS, (Reported) Thiamine HCl 100 Mg Tablet, 100 MG PO DAILY, (Reported) Tiotropium Centre 1 Inh Aerp, 1 CAP IH DAILY, (Reported) Tramadol HCl 50 Mg Tablet, 50 MG PO Q6H PRN for PAIN-MODERATE, (Reported) Zolpidem Tartrate 10 Mg Tablet, 10 MG PO HS, (Reported) Physical Exam-Cardiology Physical Exam Vital Signs/I&O Vital Sign - Last 12Hours 07/18/17 07/18/17 07/18/17 07/18/17 21:00 21:00 22:00 23:00 Pulse 72 64 66 Resp 11 19 15 B/P (MAP) 131/77 134/82 134/76 Pulse Ox 97 98 96 O2 Delivery Nasal Cannula NIV CPAP Nasal Cannula Nasal Cannula O2 Flow Rate 2.50 2.50 2.50 2.50 07/19/17 07/19/17 07/19/17 07/19/17 00:00 00:00 01:00 01:00 Pulse 62 70 70 Resp 17 21 B/P (MAP) 149/75 150/81 Pulse Ox 96 97 O2 Delivery Nasal Cannula Nasal Cannula Nasal Cannula O2 Flow Rate 2.50 2.50 2.50 07/19/17 07/19/17 07/19/17 07/19/17 02:00 03:00 04:00 04:00 Pulse 63 65 60 Resp 17 27 25 B/P (MAP) 140/83 141/84 140/82 Pulse Ox 97 94 95 O2 Delivery Nasal Cannula Nasal Cannula Nasal Cannula Nasal Cannula O2 Flow Rate 2.50 2.50 2.50 2.50 07/19/17 07/19/17 07/19/17 07/19/17 05:00 06:00 07:00 07:47 Pulse 62 73 77 Resp 23 12 B/P (MAP) 141/90 169/88 Pulse Ox 95 98 O2 Delivery Nasal Cannula Nasal Cannula Nasal Cannula O2 Flow Rate 2.50 2.50 2.50 Capillary Refill : Less Than 3 Seconds Constitutional: AAO x 3 HEENT: PERRL, No discharge, hearing is well preserved, oral hygience is good, No ulceration, No xanthelasmas are seen Neck: No carotid bruit, carotid pulses are 2 + bilaterally Respiratory: No respiratory distress, chest expansion is symmetric, chest is bilaterally symmetric, other (diminished throughout; fair air entry; prolonged exp phase) Cardiovascular: regular rate-rhythm, No JVD, S1 and S2, systolic murmur Gastrointestinal: No tender, soft, round, audible bowel sounds Rectal: deferred Extremities: No significant edema Neurologic/Psychiatric: grossly intact Skin: other (chronic bilat LE dark tissue pigmentation, consistent with venous stasis; dressing to left pinto D&I (not removed)) Data Review Labs Laboratory Tests 07/18/17 15:00: White Blood Count 5.9, Red Blood Count 3.60L, Hemoglobin 11.2L, Hematocrit 33L, Mean Corpuscular Volume 91, Mean Corpuscular Hemoglobin 31, Mean Corpuscular Hemoglobin Concent 34, Red Cell Distribution Width 14.6H, Platelet Count 172, Mean Platelet Volume 9.0, Neutrophils (%) (Auto) 79H, Lymphocytes (%) (Auto) 10L , Monocytes (%) (Auto) 9, Eosinophils (%) (Auto) 1, Basophils (%) (Auto) 0, Neutrophils # (Auto) 4.7, Lymphocytes # (Auto) 0.6L, Monocytes # (Auto) 0.6, Eosinophils # (Auto) 0.1, Basophils # (Auto) 0.0, Prothrombin Time 14.4, INR Comment 1.1, Activated Partial Thromboplast Time 31, Sodium Level 124*L, Potassium Level 4.1, Chloride Level 88L, Carbon Dioxide Level 20L, Anion Gap 16H , Blood Urea Nitrogen 8, Creatinine 0.74, Estimat Glomerular Filtration Rate > 60, BUN/Creatinine Ratio 11, Glucose Level 84, Calcium Level 8.7, Magnesium Level 1.8, Total Bilirubin 0.5, Aspartate Amino Transf (AST/SGOT) 46H, Alanine Aminotransferase (ALT/SGPT) 33, Alkaline Phosphatase 83, Total Creatine Kinase 78, Creatine Kinase MB 2.9, Troponin I < 0.30, Total Protein 6.3L, Albumin 3.8, Serum Alcohol 168H 07/18/17 16:14: Urine Color YELLOW, Urine Clarity CLEAR, Urine pH 5, Urine Specific Amo 1.010L, Urine Protein 2+H, Urine Glucose (UA) NEGATIVE, Urine Ketones NEGATIVE, Urine Nitrite NEGATIVE, Urine Bilirubin NEGATIVE, Urine Urobilinogen NORMAL, Urine Leukocyte Esterase NEGATIVE, Urine RBC (Auto) NEGATIVE, Urine RBC NONE, Urine WBC 0-2, Urine Squamous Epithelial Cells RARE, Urine Crystals NONE, Urine Bacteria NEGATIVE, Urine Casts PRESENT, Urine Hyaline Casts 0-2H, Urine Mucus SMALLH, Urine Culture Indicated NO 07/18/17 18:00: Urine Color YELLOW, Urine Clarity CLEAR, Urine pH 7, Urine Specific Amo 1.005L, Urine Protein NEGATIVE, Urine Glucose (UA) NEGATIVE, Urine Ketones NEGATIVE, Urine Nitrite NEGATIVE, Urine Bilirubin NEGATIVE, Urine Urobilinogen NORMAL, Urine Leukocyte Esterase NEGATIVE, Urine RBC (Auto) NEGATIVE, Urine RBC RARE, Urine WBC RARE, Urine Crystals NONE, Urine Bacteria NEGATIVE, Urine Casts NONE, Urine Mucus NEGATIVE, Urine Culture Indicated NO 07/18/17 21:06: Troponin I < 0.30 07/19/17 03:20: White Blood Count 5.2, Red Blood Count 3.69L, Hemoglobin 11.5L, Hematocrit 34L, Mean Corpuscular Volume 91, Mean Corpuscular Hemoglobin 31, Mean Corpuscular Hemoglobin Concent 34, Red Cell Distribution Width 15.0H, Platelet Count 166, Mean Platelet Volume 9.3, Neutrophils (%) (Auto) 68, Lymphocytes (%) (Auto) 16, Monocytes (%) (Auto) 14H, Eosinophils (%) (Auto) 2, Basophils (%) (Auto) 0, Neutrophils # (Auto) 3.5, Lymphocytes # (Auto) 0.9L, Monocytes # (Auto) 0.7, Eosinophils # (Auto) 0.1, Basophils # (Auto) 0.0, Sodium Level 136, Potassium Level 4.0, Chloride Level 98, Carbon Dioxide Level 29, Anion Gap 9, Blood Urea Nitrogen 8, Creatinine 0.73, Estimat Glomerular Filtration Rate > 60, BUN/ Creatinine Ratio 11, Glucose Level 90, Calcium Level 9.0, Total Bilirubin 0.8, Aspartate Amino Transf (AST/SGOT) 46H, Alanine Aminotransferase (ALT/SGPT) 33, Alkaline Phosphatase 87, Troponin I < 0.30, Total Protein 5.8L, Albumin 3.7 Radiology NAME: HERACLIO [facility] REC#: [id number] PT STATUS: ADM IN : 1945 PHYSICIAN: RIP CARRANZA DO ADMIT DATE: 07/18/17/ICU Signed Date of Exam: 07/18/17 CHEST 1 VIEW, AP/PA ONLY INDICATION: Dizziness. Fall. COMPARISON: 10/30/2016. FINDINGS: Single frontal view of the chest demonstrates normal mild cardiomegaly. Pulmonary vasculature is within normal limits. Left-sided dual-lead pacemaker is noted. The lungs are well aerated and clear. No large pleural effusion or pneumothorax is seen. The visualized osseous structures show no acute abnormalities. IMPRESSION: 1. Mild cardiomegaly, but no evidence of overt failure. Dictated by: Dictated on workstation # [id number] Dict: 07/18/17 1529 Trans: 07/18/17 1645 Interpreted by: BEATRIS COLINDRES MD Electronically signed by: BEATRIS COLINDRES MD 07/18/17 1645 NAME: HERACLIO [facility] REC#: [id number] PT STATUS: REG ER : 1945 PHYSICIAN: RIP CARRANZA DO ADMIT DATE: 07/18/17/ER Signed Date of Exam: 07/18/17 CT HEAD WO-R/O STROKE EXAM: CT head. TECHNIQUE: Noncontrast axial images of the brain were obtained. INDICATION: Dizziness and lightheadedness. FINDINGS: There is no intracranial hemorrhage, edema or mass effect. The brain parenchyma appears unremarkable. No hydrocephalus. The visualized portions of the orbits and paranasal sinuses appear unremarkable. IMPRESSION: Unremarkable study. Dictated by: Dictated on workstation # [id number] Dict: 07/18/17 1540 Trans: 07/18/17 1542 Interpreted by: OSMIN FARFAN MD Electronically signed by: OSMIN FARFAN MD 07/18/17 1542 ECG Impression ECG Comment AV Paced A/P-Cardiology Assessment/Admission Diagnosis Non-syncopal fall No evidence of an acute cardiac event. Hypoxia r/t COPD and non-compliance with oxygen use H/o intermittent hypokalemia due to chronic diuretic therapy and ETOH use Elevated ETOH level on lab of 07-18-17 Ac resp failure in early Oct 2016 due to prob pneumonia and noncompliance with BiPAP Sinus node dysfunction with advanced AV block resulting in syncope, corrected with dual chamber pacemaker implantation on 02/20/11. Since then, the patient has not had any syncope. Pacemaker is working normally per interrogation carried out on 07-03-17. Pacemaker functioning normally on telemetry Mild nonischemic cardiomyopathy. On cardiac cath of 02/23/14, there was only minimal CAD, LVEDP was normal and LVEF was 45-50% Echo of 10/30/16 (Dr Díaz) shows LVEF approx 60%, mild LAE, mild MR & TR, PASP 45 mmHg Hypertension Hyperlipidemia Recurrent atrial flutter despite therapy with amiodarone Chronic apixaban anticoag for stroke prophylaxis Severe COPD, requiring intermittent supplemental oxygen use Seasonal allergies Hiatal hernia and PUD, by history Lozano's esophagus and PUD and HH on endoscopy by Dr Mata at [place] in July 2015 Quit tobacco use in 2012 Discussion and Recomendations Non-syncopal fall. Hypoxemia likely d/t COPD and non-compliance with oxygen. Hyponatremia likely r/t chronic diuretic use and ETOH use. Hyponatremia has resolved. Resume home medications. We have advised compliance with medications and home oxygen use. We have advise immediate cessation of ETOH use. We would like to thank the medical services for this consult. Further recommendations will be based on his hospital course. This consult is being scribed by Carine Brown APRN on behalf of Dr. Cherry after discussion regarding plan of care. Clinical Quality Measures DVT/VTE Risk/Contraindication: Risk Factor Score Per Nursin RFS Level Per Nursing on Admit: 2=Moderate Physician Assessment Physician Assessment No cp or palp or syncope Lungs: good bilat air entry Cor: irreg Ext: no c/c/e; chronic bilat leg discoloration consistent with stasis dermatitis A&R * As documented in our note above that I updated (italics) and as noted below * I advised compliance with meds and supple oxygen * I advised avoidance of alcohol use * I advised outpatient f/u and answered CV-related questions [facility]LO[facility] BROWN [facility] Jul 19, 2017 07:55 JADE CHERRY MD FACP [facility] Jul 19, 2017 08:53
[2017-07-19] MEDS: THIAMINE 100 MG (VITAMIN B-1) TAB PO SCH (08:04)
[2017-07-19] MEDS: FOLIC ACID 1 MG TAB PO SCH (08:04)
[2017-07-19] MEDS: MAGNESIUM OXIDE (MAG-OX)400 MG TAB PO SCH (08:04)
[2017-07-19] MEDS ORDERED: TRAM50TA2 PO (08:12)
[2017-07-19] MEDS ORDERED: BUSP10TA95 PO (08:12)
[2017-07-19] MEDS ORDERED: APIX5TAB PO (08:27)
[2017-07-19] MEDS ORDERED: ALPRAZolam 1 MG (XANAX) TAB PO PRN (09:30)
[2017-07-19] MEDS: MUPIROCIN 2% OINT 22 GM (BACTROBAN) TUBE TOP SCH (09:45)
[2017-07-19] MEDS ORDERED: RT-ALBUTEROL SULF 2.5 MG/3 ML PRE-MIX VIAL IH PRN (10:30)
[2017-07-19] MEDS ORDERED: LACTULOSE SYRUP 10GM/15ML (ENULOSE) 30ML UDC PO PRN (10:45)
[2017-07-19] MEDS ORDERED: SUCRALFATE 1 GM (CARAFATE) TAB PO SCH (11:00)
--- NOTE | 2017-07-19 12:14 | Short Stay Summary-Hospitalist ---
HPI History of Present Illness: HPI/Chief Complaint CC: Syncopal episode HPI: This is a 72 [address] Casas presented to the ER with a syncopal episode and was admitted to the ICU. nursing home administrator: Pt is okay to DC RN states that she will ambulate with pt because he is feeling bloated and RN will make sure he is not SOB. Pt states that he fell because he tripped over a tree limb RN states that pt is shaky this morning due to possible early alcohol withdrawal ? Patient Interview: Pt states he does not feel well today due to bloating. Pt stated that he had a BM today, pt does not usually have BM troubles at home according to a family member. Family member notified me that pt has a bad hiatal hernia that could be contributing to the bloating and he has eaten a lot today. Physical exam was stable, CTAB I notified pt that the alcohol consumption will cause hyponatremia and cause pt to feel weak and exacerbate other medical issues. Family member states that pt had previously quit ETOH but has started drinking again. Pt confirms smoking cessation a few years ago. I notified pt that his blood work was satisfactory and his sodium level was stable. Pt was encouraged to ambulate Pt confirms seeing Dr. Carpenter every 3 months. Scribed by Arnel Hunter under the direct supervision of Dr. Torres. Source: patient Date Seen 07/19/17 Time Seen by Provider: 10:30 Attending Physician Jarad Carpenter DO PCP Jarad Carpenter DO Referring Physician Date of Admission Jul 18, 2017 at 16:12 Home Medications & Allergies Home Medications Reviewed patient Home Medication Reconciliation Form Allergies Allergies Coded Allergies NKANo Known Allergies (Verified Allergy, Unknown, 07/18/17) Past Brxtwmd-Bsvcbk-Qosoff Hx Patient Social History Marrital Status: Employed/Student: retired Alcohol Use: Regular Use Number of Drinks Today: 4 Alcohol Beverage of Choice: Beer Recreational Drug Use: No Smoking Status: Former Smoker Former Smoker, Quit: Oct 29, 2012 Type Used: Cigarettes Physical Abuse Screen: No Sexual Abuse: No Recent Foreign Travel: No Contact w/other who traveled: No Recent Hopitalizations: No Recent Infectious Disease Expo: No Immunizations Up To Date Tetanus Booster (TDap): Unknown Pediatric: No Date of Pneumonia Vaccine: Jul 29, 2014 Date of Influenza Vaccine: Aug 05, 2015 Seasonal Allergies Seasonal Allergies: Yes Surgeries Yes (HEART CATH, LEFT SHOULDER SURGERY) Cardiac, Orthopedic, Pacemaker Respiratory Yes COPD, Emphysema, Sleep Apnea Currently Using CPAP: No Currently Using BIPAP: No Cardiovascular Yes (systolic dysfunction) High Cholesterol, Hypertension Neurological No Reproductive System Hx Reproductive Disorders: No Sexually Transmitted Disease: No HIV/AIDS: No Genitourinary Yes Renal Failure Gastrointestinal Yes Gastroesophageal Reflux, Esophagitis Musculoskeletal Yes Arthritis, Chronic Back Pain Endocrine History of Endocrine Disorders: No HEENT History of HEENT Disorders: Yes HEENT Disorders: Cataract Loss of Vision: Denies Hearing Impairment: Denies Cancer Yes Skin, Melanoma Psychosocial History of Psychiatric Problem: Yes Behavioral Health Disorders: Anxiety, Depression Integumentary History of Skin or Integumenta: No Blood Transfusions History of Blood Disorders: No Adverse Reaction to a Blood Tr: No Family Medical History Significant Family History: Heart Disease Family Hx: Alzheimer's disease 19 FATHER 19 MOTHER (70's) Diabetes mellitus 19 FATHER Hypertension 19 FATHER Myocardial infarction 19 FATHER (60's) Review of Systems Constitutional: see HPI, dizziness, weakness EENTM: no symptoms reported Respiratory: no symptoms reported Cardiovascular: no symptoms reported Gastrointestinal: loss of appetite Genitourinary: no symptoms reported Musculoskeletal: no symptoms reported Skin: no symptoms reported Psychiatric/Neurological: No Symptoms Reported All Other Systems Reviewed Negative Unless Noted: Yes Physical Exam Physical Exam Vital Signs Vital Sign - Last 12Hours 07/18/17 16:34 Temp 97.9 Capillary Refill : Less Than 3 Seconds General Appearance: No Apparent Distress, WD/WN, Chronically ill, Obese Eyes: Bilateral Eye Normal Inspection, Bilateral Eye PERRL HEENT: PERRL/EOMI, Normal ENT Inspection, Pharynx Normal Neck: Full Range of Motion, Normal Inspection, Non Tender, Supple, Carotid Bruit Respiratory: Chest Non Tender, Normal Breath Sounds, No Accessory Muscle Use, No Respiratory Distress, Decreased Breath Sounds Cardiovascular: Regular Rate, Rhythm, No Edema, No Gallop, No JVD, No Murmur, Normal Peripheral Pulses Gastrointestinal: Normal Bowel Sounds, No Organomegaly, No Pulsatile Mass, Non Tender, Soft Back: Normal Inspection, No CVA Tenderness, No Vertebral Tenderness Extremity: Normal Capillary Refill, Normal Inspection, Normal Range of Motion, Non Tender, No Calf Tenderness, No Pedal Edema Neurologic/Psychiatric: Alert, Oriented x3, No Motor/Sensory Deficits, Normal Mood/Affect Skin: Normal Color, Warm/Dry Lymphatic: No Adenopathy Results Results/Procedures Lab Laboratory Tests 07/18/17 15:00 07/19/17 03:20 Short Stay Diagnosis Discharge Diagnosis-Short Stay Admission Diagnosis Assessment: Questionable syncopal episode versus alcohol intoxication with hyponatremia CAD Severe COPD oxygen dependent but was not wearing oxygen at time of episode Obstructive sleep apnea Chronic respiratory failure PAF Chronic Constipation 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 Final Discharge Diagnosis Assessment: Questionable syncopal episode versus alcohol intoxication with hyponatremia CAD Severe COPD oxygen dependent but was not wearing oxygen at time of episode Obstructive sleep apnea Chronic respiratory failure PAF Chronic Constipation 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 Conclusion Plan Plan: Ambulation to reduce bloating Plan on DC today if pt feels stable Cease alcohol use Diagnosis/Problems Diagnosis/Problems (1) Syncope Status: Acute Assessment & Plan: Monitor on Telemetry, consult Cardiology Qualifiers: Qualified Codes: R55 - Syncope and collapse (2) Alcohol abuse Status: Chronic Assessment & Plan: Detox protocol Cease alcohol consumption (3) COPD (chronic obstructive pulmonary disease) Status: Chronic Qualifiers: Qualified Codes: J44.9 - Chronic obstructive pulmonary disease, unspecified (4) CAD (coronary artery disease) Status: Chronic Qualifiers: Qualified Codes: I25.10 - Atherosclerotic heart disease of [place] coronary artery without angina pectoris (5) GAIL (obstructive sleep apnea) Status: Chronic Assessment & Plan: Maintain on CPAP and O2 13/05 (6) Hyponatremia Onset Date: ~ 07/18/2017 Status: Resolved Assessment & Plan: Hyponatremia due to alcohol excess (7) Pacemaker Status: Acute Clinical Quality Measures DVT/VTE Risk/Contraindication: Risk Factor Score Per Nursin RFS Level Per Nursing on Admit: 2=Moderate ZACK TORRES DO Jul 19, 2017 12:14
[2017-07-19] MEDS ORDERED: PANTOPRAZOLE 40 MG (PROTONIX) TAB PO SCH (16:00)
[2017-07-19] MEDS ORDERED: MAGNESIUM OXIDE (MAG-OX)400 MG TAB PO SCH (17:00)
[2017-07-19] MEDS ORDERED: ROFLUMILAST 500 MCG TAB (DALIRESP) PO SCH (17:00)
[2017-07-19] MEDS ORDERED: RT-FLUTICASONE 110 MCG (FLOVENT) PER PUFF INH SCH (20:00)
[2017-07-19] MEDS ORDERED: APIXABAN 5 MG (ELIQUIS) TABLET PO SCH (21:00)
[2017-07-19] MEDS ORDERED: ZOLPIDEM 5 MG (AMBIEN) TAB PO SCH ×2 (21:00)
[2017-07-19] MEDS ORDERED: ATORVASTATIN 10 MG (LIPITOR) TABLET PO SCH (21:00)
[2017-07-19] MEDS ORDERED: busPIRone 10 MG (BUSPAR) TAB PO SCH (21:00)
[2017-07-19] MEDS ORDERED: ARFORMOTEROL 15 MCG/2 ML (BROVANA) INH SOLUTIION IH SCH (21:00)
[2017-07-20] MEDS ORDERED: VITAMIN D3 1,000 UNITS (CHOLECALCIFEROL) TABLET PO SCH (07:00)
[2017-07-20] MEDS ORDERED: MULTIVITAMINS LIQUID 15 ML UDC PO SCH (07:00)
[2017-07-20] MEDS ORDERED: THIAMINE 100 MG (VITAMIN B-1) TAB PO SCH (07:00)
[2017-07-20] MEDS ORDERED: UMECLIDINIUM BROMIDE (INCRUSE ELLIPTA) 7'S IH SCH (08:00)
[2017-07-20] MEDS ORDERED: FOLIC ACID 1 MG TAB PO SCH (09:00)
[2017-07-20] MEDS ORDERED: lisINopril 20 MG (ZESTRIL) TAB PO SCH (09:00)
[2017-07-20] MEDS ORDERED: DILTIAZEM 300 MG (CARDIZEM CD) CAP PO SCH (09:00)
[2017-07-20] MEDS ORDERED: MONTELUKAST 10 MG (SINGULAIR) TAB PO SCH (21:00)
[2017-07-21] MEDS ORDERED: INFLUENZA TRIvalent 2017-2018 0.5 ML/45 MCG SYR IM ONE (07:00)
[2017-07-22] MEDS ORDERED: KCL 10 MEQ TAB (MICRO K) PO SCH (07:00)
[2017-07-22] MEDS ORDERED: FUROSEMIDE 40 MG (LASIX) TAB PO SCH (07:00)
== END 2017-07-19 12:35 | disposition home or self-care (01) | DRG 641 ==
LOC: EDUNIT# 14:31 → ER 14:33 → INTOOBSV 16:12 → OBSVTOIN 16:12 → ICU 16:12 → UNDODISOB 07-19 12:35
PROVIDERS: ADMIT Internal Medicine; ATTEND Internal Medicine
DX: E87.1 Hypo-osmolality and hyponatremia (principal); R55 Syncope and collapse; F10.129 Alcohol abuse with intoxication, unspecified; R09.02 Hypoxemia; J44.9 Chronic obstructive pulmonary disease, unspecified; I48.92 Unspecified atrial flutter; I25.5 Ischemic cardiomyopathy; S80.812A Abrasion, left lower leg, initial encounter; J30.2 Other seasonal allergic rhinitis; G47.33 Obstructive sleep apnea (adult) (pediatric); I10 Essential (primary) hypertension; E78.00 Pure hypercholesterolemia, unspecified; K21.9 Gastro-esophageal reflux disease without esophagitis; K22.70 Barrett's esophagus without dysplasia; E87.6 Hypokalemia; I25.10 Atherosclerotic heart disease of native coronary artery without angina pectoris; T50.2X5A Adverse effect of carbonic-anhydrase inhibitors, benzothiadiazides and other diuretics, initial encounter; I87.8 Other specified disorders of veins; F41.9 Anxiety disorder, unspecified; F32.9 Major depressive disorder, single episode, unspecified; I08.1 Rheumatic disorders of both mitral and tricuspid valves; M19.91 Primary osteoarthritis, unspecified site; Z99.81 Dependence on supplemental oxygen; Z91.19 Patient's noncompliance with other medical treatment and regimen; Z95.0 Presence of cardiac pacemaker; Z87.891 Personal history of nicotine dependence; Z87.01 Personal history of pneumonia (recurrent); Z79.01 Long term (current) use of anticoagulants; Z23 Encounter for immunization; W18.09XA Striking against other object with subsequent fall, initial encounter
CPT/HCPCS: 36415; 70450; 71010; 73590; 80053; 80320; 81000; 82550; 82553; 83735; 84484; 85025; 85610; 85730; 90471; 90715; 93005; 93041